=== PATIENT | female | born 1935 | race African-American/Black ===

== ENCOUNTER 2019-04-25 15:48 | Inpatient (IN) | payer MEDICARE, MEDICAID ==
[2019-04-25] VITALS (9 sets, daily range): BP systolic 172–248; BP diastolic 51–128
[~2019-04-25] VITALS: Ht 162.6 cm; Wt 54.5 kg
--- NOTE | 2019-04-25 15:50 | NUR ---
ED Nurse Note: pt brought in by [facility] from [facility], c/c hyperglycemia BS>500 and hypertension, BP>200 systolic. Noted pt tachycardic and febrile. REctal temp 102.6. ERMD aware of pt's condition. 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 will cont monitor.
[2019-04-25] MEDS ORDERED: Acetaminophen 650 MG SUPP RECTAL ONE (16:00)
--- NOTE | 2019-04-25 16:00 | NUR ---
ED Nurse Note: ERMD aware of pt's blood pressure, will cont monitor.
--- NOTE | 2019-04-25 16:02 | Emergency Room Report ---
History of Present Illness General Chief Complaint: Abnormal Labs Source: EMS Present Illness HPI Patient presents with increased blood glucose and altered level of consciousness. She is coming from a residential facility and brought by EMS. They checked a blood sugar that was elevated. In addition to that they state that her blood pressure was also elevated. They claim that she is DO NOT RESUSCITATE patient. The patient is unable to give history. According to the [place] physician she has history of dementia. She was treated for a urinary tract infection in January with Escherichia coli that was sensitive to sulfa, Zosyn, cephalosporins. Apparently the Escherichia coli was resistant to ciprofloxacin. He confirms also that she is DO NOT RESUSCITATE status. Allergies: Coded Allergies: AMLODIPINE (Verified Allergy, Unknown, 04/25/19) CODEINE (Verified Allergy, Unknown, 04/25/19) LOVASTATIN (Verified Allergy, Unknown, 04/25/19) MILK (Verified Allergy, Unknown, 04/25/19) PIOGLITAZONE (Verified Allergy, Unknown, 04/25/19) SIMVASTATIN (Verified Allergy, Unknown, 04/25/19) Uncoded Allergies: NSAIDS (Allergy, Unknown, 04/25/19) OPIATES (Allergy, Unknown, 04/25/19) SHELLFISH-DERIVED PRODUCTS (Allergy, Unknown, 04/25/19) Patient History Limited by: medical condition Past Medical History: see triage record, old chart reviewed Social History Narrative residential facility Now: No Reviewed Nursing Documentation: PMH: Agreed; PSxH: Agreed Review of Systems All Other Systems: limited Physical Exam Vital Signs Date Time Temp Pulse Resp B/P (MAP) Pulse Ox O2 Delivery O2 Flow Rate FiO2 04/25/19 15:45 99.1 103 18 202/86 (124) 99 Room Air Sp02 EP Interpretation: reviewed, normal General Appearance: alert, thin, Chronically Ill Head: normocephalic Eyes: bilateral eye normal inspection ENT: dry mucus membranes Neck: supple Respiratory: lungs clear, normal breath sounds Cardiovascular #1: regular rate, rhythm Cardiovascular #2: 2+ radial (R) Gastrointestinal: normal inspection, normal bowel sounds, non tender, no mass, non-distended Genitourinary: no CVA tenderness Musculoskeletal: back normal, normal range of motion Neurologic: responsive, sensory intact, motor weakness Psychiatric: depressed affect Skin: warm/dry, pallor, other - Sallow Procedures Critical Care Time Critical Care Time Total Critical Care Time: 30 min bedside evaluation and treatment excludes procedures (EKG). Reason for critical care: Sepsis, elevated troponin, renal failure, hyperglycemia, hypertensive urgency Possible complications: hypotension, hypertension, MT, shock, arrhythmias, metabolic acidosis, end organ damage, respiratory failure. Interventions: Sepsis resuscitation, antibiotics, insulin, repeat evaluations, discussion with doctors regarding level of care Course: Patient presented with fever, altered mental status. Sepsis resuscitation begun. Presumptive urinary source antibiotics begun. Repeat evaluations. Elevated troponin treated with aspirin. Discussed with [place] physician and determination of level of care. Insulin several doses administered. Sepsis reevaluation performed. Discussion with admitting physician. In the face of sepsis hypertension treated. Consultations: nursing staff, EMS, [place] physician, admitting physician Performed by: Dr. Petit Tolerated well condition = serious Medical Decision Making Diagnostic Impression: Primary Impression: Sepsis Qualified Codes: A41.9 - Sepsis, unspecified organism Additional Impressions: Elevated troponin Renal failure Qualified Codes: N17.9 - Acute kidney failure, unspecified Hypernatremia UTI (urinary tract infection) Qualified Codes: N39.0 - Urinary tract infection, site not specified Hypertensive urgency ER Course Patient presents with fever, hyperglycemia and hypertension and appears dehydrated. I differential includes sepsis, pneumonia, urinary tract infection , acute myocardial infarction amongst others. The patient will be evaluated with EKG, chest x-ray and labs including blood cultures and lactate. Based on the fact oxygen saturation is normal most likely she has a urinary source of her infection. She'll also be treated with Tylenol, fluid resuscitation with 30 mils per kilogram and antibiotics will be ordered. EKG ST. CXR atelectasis R. - large stomach bubble. WBC normal. Called with minimally elevated troponin - aspirin ordered. Acute renal failure. Hypernatremia. After bolus, more alert. HR better. Screaming occasionally. ABD - soft and not causing pain. Urine = source. Treat with morphine. Glucose 450 - insulin ordered IV. Agitated, Ativan given, min effect. Systolic hypertension. Repeat lactate and BNP ordered. Morphine repeat. BP min better. Still with systolic HTN. Hydralazine ordered (HR = 86). FeNa - 2.46% suggests ATN. Repeat BNP improved. Glucose high and insulin repeat. Repeat lactate improved. 19:25. Discussed with Dr. Alicia Qureshi - determined to stay as complex and too ill to transfer. Admit tele Dr. Pendleton. Discussed. Laboratory Tests Test 04/25/19 15:55 04/25/19 15:58 04/25/19 18:25 White Blood Count 9.9 K/UL (4.8-10.8) Red Blood Count 4.41 M/UL (4.20-5.40) Hemoglobin 12.7 G/DL (12.0-16.0) Hematocrit 38.7 % (37.0-47.0) Mean Corpuscular Volume 88 FL (80-99) Mean Corpuscular Hemoglobin 28.8 PG (27.0-31.0) Mean Corpuscular Hemoglobin Concent 32.9 G/DL (32.0-36.0) Red Cell Distribution Width 14.1 % (11.6-14.8) Platelet Count 155 K/UL (150-450) Mean Platelet Volume 7.4 FL (6.5-10.1) Neutrophils (%) (Auto) 71.8 % (45.0-75.0) Lymphocytes (%) (Auto) 20.3 % (20.0-45.0) Monocytes (%) (Auto) 5.4 % (1.0-10.0) Eosinophils (%) (Auto) 1.7 % (0.0-3.0) Basophils (%) (Auto) 0.8 % (0.0-2.0) Prothrombin Time 9.8 SEC (9.30-11.50) Prothrombin Time INR 0.9 (0.9-1.1) PTT 26 SEC (23-33) Sodium Level 156 MMOL/L (136-145) H 156 MMOL/L (136-145) H Potassium Level 5.0 MMOL/L (3.5-5.1) 5.5 MMOL/L (3.5-5.1) H Chloride Level 120 MMOL/L (98-107) H 125 MMOL/L (98-107) H Carbon Dioxide Level 26 MMOL/L (21-32) 20 MMOL/L (21-32) L Anion Gap 10 mmol/L (5-15) 11 mmol/L (5-15) Blood Urea Nitrogen 112 mg/dL (7-18) H 115 mg/dL (7-18) H Creatinine 4.3 MG/DL (0.55-1.30) H 3.5 MG/DL (0.55-1.30) H Estimate Glomerular Filtration Rate mL/min (>60) mL/min (>60) Glucose Level 589 MG/DL (74-106) *H 426 MG/DL (74-106) #H Lactic Acid Level 3.50 mmol/L (0.4-2.0) H 2.50 mmol/L (0.66-2.22) H Calcium Level 11.2 MG/DL (8.5-10.1) H 9.5 MG/DL (8.5-10.1) Phosphorus Level 2.8 MG/DL (2.5-4.9) Magnesium Level 2.7 MG/DL (1.8-2.4) H Total Bilirubin 0.2 MG/DL (0.2-1.0) Aspartate Amino Transferase (AST) 16 U/L (15-37) Alanine Aminotransferase (ALT) 24 U/L (12-78) Alkaline Phosphatase 112 U/L (46-116) Total Creatine Kinase 56 U/L (26-308) Troponin I 0.066 ng/mL (0.000-0.056) Pro-B-Type Natriuretic Peptide 4844 pg/mL (0-125) H Total Protein 7.6 G/DL (6.4-8.2) Albumin 3.2 G/DL (3.4-5.0) L Globulin 4.4 g/dL Albumin/Globulin Ratio 0.7 (1.0-2.7) L Lipase 168 U/L (73-393) Urine Color Pale yellow Urine Appearance Slightly cloudy Urine pH 5 (4.5-8.0) Urine Specific [place] 1.010 (1.005-1.035) Urine Protein 4+ (NEGATIVE) H Urine Glucose (UA) 4+ (NEGATIVE) H Urine Ketones Negative (NEGATIVE) Urine Blood 2+ (NEGATIVE) H Urine Nitrite Negative (NEGATIVE) Urine Bilirubin Negative (NEGATIVE) Urine Urobilinogen Normal MG/DL (0.0-1.0) Urine Leukocyte Esterase 3+ (NEGATIVE) H Urine RBC 5-10 /HPF (0 - 2) H Urine WBC 20-30 /HPF (0 - 2) H Urine Squamous Epithelial Cells Few /LPF (NONE/OCC) Urine Transitional Epithelial Cells /LPF (NONE) Urine Amorphous Sediment Few /LPF (NONE) H Urine Bacteria Many /HPF (NONE) H Urine Random Sodium 36 mmol/L (20-110) Urine Creatinine 40.4 MG/DL (30.0-125.0) EKG Diagnostic Results Rate: tachycardiac ST Segments: no acute changes Rhythm Strip Diag. Results EP Interpretation: yes Rhythm: no PVC's, no ectopy, other - ST Chest X-Ray Diagnostic Results Chest X-Ray Diagnostic Results : Chest X-Ray Ordered: Yes # of Views/Limited/Complete: 1 View Indication: Other EP Interpretation: Yes Interpretation: no consolidation, no effusion, no pneumothorax Impression: Other Electronically Signed by: Electronically signed by Rios Petit MD Last Vital Signs Date Time Temp Pulse Resp B/P (MAP) Pulse Ox O2 Delivery O2 Flow Rate FiO2 04/26/19 00:20 158/66 04/26/19 00:00 Room Air 04/26/19 00:00 97.8 76 18 98 Status: improved Disposition: ADMITTED INPATIENT Condition: Serious Rios Petit MD Apr 25, 2019 16:02
[2019-04-25] MEDS ORDERED: Cefepime HCl 1 GM in D5W 55 ML IVPB ONE (16:15)
--- NOTE | 2019-04-25 16:20 | NUR ---
ED Nurse Note: pt had BM x1, soft brown color, small amount.
--- NOTE | 2019-04-25 16:25 | NUR ---
ED Nurse Note: pt cleaned and changed into gown.
[2019-04-25 16:28] LABS: BASOPHILS % (AUTO) 0.8 % (0.0-2.0); EOSINOPHILS % (AUTO) 1.7 % (0.0-3.0); HEMATOCRIT 38.7 % (37.0-47.0); HEMOGLOBIN 12.7 G/DL (12.0-16.0); LYMPHOCYTES % (AUTO) 20.3 % (20.0-45.0); MEAN CORPUSCULAR VOLUME 88 FL (80-99); MONOCYTES % (AUTO) 5.4 % (1.0-10.0); NEUTROPHILS % (AUTO) 71.8 % (45.0-75.0); PLATELET COUNT 155 K/UL (150-450); RED BLOOD COUNT 4.41 M/UL (4.20-5.40); RED CELL DISTRIBUTION WIDTH 14.1 % (11.6-14.8); WHITE BLOOD COUNT 9.9 K/UL (4.8-10.8)
[2019-04-25 16:37] LABS: INR 0.9 (0.9-1.1)
--- NOTE | 2019-04-25 16:40 | NUR ---
ED Nurse Note: 16 fr witt cath inserted per ERMD order, pt tolerated well, 10cc NS inserted, secured with leg dressing, noted 20cc urine return with yellow cloudy with sediments. specimen collected and sent to lab.
[2019-04-25 16:46] LABS: APPEARANCE,URINE SLIGHTLY CLOUDY; BILIRUBIN, URINE NEGATIVE (NEGATIVE); COLOR,URINE PALE YELLOW; GLUCOSE, URINE (UA) 4+ (NEGATIVE); KETONES,URINE NEGATIVE (NEGATIVE); LEUKOCYTE ESTERASE ,URINE 3+ (NEGATIVE); NITRITE,URINE NEGATIVE (NEGATIVE); PH,URINE 5 (4.5-8.0); PROTEIN,URINE 4+ (NEGATIVE); UROBILINOGEN,URINE NORMAL MG/DL (0.0-1.0)
[2019-04-25 16:55] LABS: ALANINE AMINOTRANSFERASE 24 U/L (12-78); ALBUMIN 3.2 G/DL (3.4-5.0); ALBUMIN/GLOBULIN RATIO 0.7 (1.0-2.7); ALKALINE PHOSPHATASE 112 U/L (46-116); ANION GAP 10 mmol/L (5-15); ASPARTATE AMINO TRANSFERASE 16 U/L (15-37); BILIRUBIN,TOTAL 0.2 MG/DL (0.2-1.0); BLOOD UREA NITROGEN 112 mg/dL (7-18); CALCIUM 11.2 MG/DL (8.5-10.1); CARBON DIOXIDE 26 MMOL/L (21-32); CHLORIDE 120 MMOL/L (98-107); CREATINE KINASE 56 U/L (26-308); CREATININE 4.3 MG/DL (0.55-1.30); PHOSPHORUS 2.8 MG/DL (2.5-4.9); SODIUM 156 MMOL/L (136-145)
--- NOTE | 2019-04-25 17:04 | NUR ---
ED Nurse Note: ERMD aware of pt's critical lab, elevated glucose, lactic, troponin
--- NOTE | 2019-04-25 17:30 | NUR ---
ED Nurse Note: ERMD notified regarding pt's NL=[id number] at the bedside, also notified ERMD for possible pain.
[2019-04-25] MEDS ORDERED: Insulin Human Regular 100units/ml 3ml IV ONE ×2 (17:45→19:30)
[2019-04-25] MEDS ORDERED: Morphine Sulfate 2mg/ml Inj(IV/IM USE ONLY) IVP ONE (17:45)
[2019-04-25] MEDS ORDERED: LORazepam Inj 2mg/ml 1ml IV ONE (18:00)
--- NOTE | 2019-04-25 18:10 | NUR ---
ED Nurse Note: Pt continue to demonstrate sx agitation, moaning, frowning, possible pain, ERMD notified.
[2019-04-25] MEDS ORDERED: DULCOLAX10 MG RC (18:25)
[2019-04-25] MEDS ORDERED: CLONIDINE1 EAC1 TD (18:25)
[2019-04-25] MEDS ORDERED: CALCITONIN-SAL3.7 ML NS (18:25)
[2019-04-25] MEDS ORDERED: VITAMIN B-12100 MCG ORAL (18:25)
[2019-04-25] MEDS ORDERED: DOCUSATE SODIU100 M2 RECTAL (18:25)
[2019-04-25] MEDS ORDERED: ASPIRIN81 M3 PO (18:25)
[2019-04-25] MEDS ORDERED: SIMBRINZA 1%-0.28 ML OP (18:25)
[2019-04-25] MEDS ORDERED: FERROUS SULFAT325 M2 ORAL (18:25)
[2019-04-25] MEDS ORDERED: Morphine Sulfate 4mg/ml Inj (IV USE ONLY) IVP ONE (18:30)
[2019-04-25 18:59] LABS: ANION GAP 11 mmol/L (5-15); BLOOD UREA NITROGEN 115 mg/dL (7-18); CALCIUM 9.5 MG/DL (8.5-10.1); CARBON DIOXIDE 20 MMOL/L (21-32); CHLORIDE 125 MMOL/L (98-107); CREATININE 3.5 MG/DL (0.55-1.30); POTASSIUM 5.5 MMOL/L (3.5-5.1); SODIUM 156 MMOL/L (136-145)
[2019-04-25] MEDS ORDERED: ACETAMINOPHEN325 M1 ORAL (19:04)
[2019-04-25] MEDS ORDERED: NEPHROVITE1 TAB ORAL (19:04)
[2019-04-25] MEDS ORDERED: XOPENEX0.63 MG/3 HHN (19:04)
[2019-04-25] MEDS ORDERED: TYLENOL325 MG ORAL (19:04)
[2019-04-25] MEDS ORDERED: SORBITOL 70%30 ML ORAL (19:04)
[2019-04-25] MEDS ORDERED: ZOFRAN4 M1 ORAL (19:04)
[2019-04-25] MEDS ORDERED: HUMULIN R100 UNIT/1 SUBQ (19:04)
[2019-04-25] MEDS ORDERED: PROCRIT3000 UNIT/ SUBQ (19:04)
[2019-04-25] MEDS ORDERED: MINERAL OIL EN133 ML RC (19:04)
[2019-04-25] MEDS ORDERED: MULTIPLE VITAM1 EAC6 PO (19:04)
[2019-04-25] MEDS ORDERED: APRESOLINE100 MG ORAL (19:04)
[2019-04-25] MEDS ORDERED: LANTUS SOL100 UNIT/1 SUBQ (19:04)
[2019-04-25] MEDS ORDERED: ISOSORBIDE DINI20 M2 PO (19:04)
[2019-04-25] MEDS ORDERED: LATANOPROST 0.7.5 ML OP (19:04)
[2019-04-25] MEDS ORDERED: MOTRIN IB200 MG ORAL (19:04)
[2019-04-25] MEDS ORDERED: NIFEDIPINE ER90 M2 ORAL (19:04)
[2019-04-25] MEDS ORDERED: ACETAMINOPHEN650 M2 ORAL (19:04)
[2019-04-25] MEDS ORDERED: SENNA8.6 M2 PO (19:04)
[2019-04-25] MEDS ORDERED: NORMODYNE300 MG ORAL (19:04)
--- NOTE | 2019-04-25 21:57 | NUR ---
ED Nurse Note: REPORT GIVEN TO CYNDI HUANG
--- NOTE | 2019-04-25 21:58 | NUR ---
NURSE NOTES: Received report over the phone from CYNDI Cadena.Patient nonverbal,ST on quality assurance monitor,tolerated r/air well,IV intact,F/C draining toward gravity,B/P 175/94,charge nurse aware,waiting patient on a floor,room is ready.
[2019-04-25] MEDS ORDERED: HydrALAZINE 50mg tab ORAL PRN (22:15)
--- NOTE | 2019-04-25 22:15 | NUR ---
ED Nurse Note: PT TRANSFERRED TO SDU, ALL BELONGINGS SENT W/ PT W/ COMPLETED LIST, PICTURE UPLOADED, IV INTACT AND PATENT. CARE ENDORSED TO CYNDI HUANG.
--- NOTE | 2019-04-25 22:15 | NUR ---
NURSE NOTES: Patient brought on a floor by radha,no s/s of pain,no respiratory distress noted,belongings list signed,picture taken and uploaded,bed in a low safety position,call light within a reach,will continue to monitor.
[2019-04-26] VITALS: BP 158/66
[2019-04-26] MEDS ORDERED: NovoLOG Insulin Flexpen SUBQ SCH
[2019-04-26] MEDS: HydrALAZINE 50mg tab ORAL SCH ×4 (00:20→17:49)
--- NOTE | 2019-04-26 02:45 | Consultation ---
DATE OF CONSULTATION: 04/25/2019 CARDIOLOGY CONSULTATION REQUESTING PHYSICIAN: Nain Pendleton M.D. REASON FOR CONSULTATION: Uncontrolled hypertension and blood glucose in the setting of sepsis. HISTORY OF PRESENT ILLNESS: This 83-year-old female, who [facility]. She was brought into the hospital by paramedics because of altered mentation and labile elevated blood pressure and blood glucose levels. The patient is unable to give any historical data and records were reviewed for historical data. In the emergency room, the patient was noted to have a blood pressure of over 200 systolic on arrival with a heart rate over 100. She was also found to have signs of an acute infection with sepsis and an elevated troponin level prompting this consultation. PAST MEDICAL HISTORY: 1. Type 2 diabetes mellitus. 2. Hypertension. 3. Cerebrovascular disease. 4. Hyperlipidemia. 5. Chronic kidney disease. ALLERGIES: Multiple including amlodipine, codeine, statin drugs, pioglitazone, opiates, NSAIDs, shellfish, and milk. FAMILY HISTORY: Not known. SOCIAL HISTORY: Not obtainable. REVIEW OF SYSTEMS: Otherwise, not obtainable, but pertinent data from chart review is outlined above. PHYSICAL EXAMINATION: VITAL SIGNS: Temperature was 99.1 degrees, blood pressure 202/86, heart rate 103, respiratory rate 18, and room air oxygen saturation 99%. HEENT: Conjunctivae are pink. Oropharynx clear. Mucous membranes dry. NECK: Supple. Jugular venous pressure flat. LUNGS: Clear. CARDIAC: Regular rhythm and rate. Normal S1 and S2 with a 1/6 systolic murmur at the base. ABDOMEN: Soft and nontender with no guarding or rebound. EXTREMITIES: No clubbing, no cyanosis, and no edema. NEUROLOGIC: The patient is withdrawn and lethargic with moderate cognitive impairment. LABORATORY AND DIAGNOSTIC DATA: EKG reveals sinus tachycardia. No acute ST change. Chest x-ray reveals right atelectasis. White count 9.9 and hemoglobin 12.7. Sodium 156, potassium 5, bicarbonate 26, chloride 120, BUN 112, creatinine 4.3, and glucose 589. Lactic acid 3.5. Troponin 0.66. Pro-natriuretic peptide 4800. Albumin 3.2. Urinalysis with 20 to 30 white cells and many bacteria. IMPRESSION: 1. Hypertensive urgency. 2. Type 2 diabetes mellitus with uncontrolled blood glucose. 3. Severe hypernatremia and dehydration. 4. Hyperchloremia. 5. Acute renal failure with underlying chronic kidney disease. 6. Urinary tract infection. PLAN: 1. Hypotonic IV fluid hydration. 2. Panculture. 3. Empiric antibiotics. 4. Clarify code status. 5. Serial troponin levels. 6. Anti-platelet therapy. 7. Beta-blockade. 8. Titration of antihypertensive drugs. 9. Insulin coverage by sliding scale. 10. DVT and stress ulcer prophylaxis. 11. Further recommendations will follow based on clinical course. Valente Chong JOB#: [id number] CC:
[2019-04-26 04:00] VITALS: BP 147/70
[2019-04-26] MEDS ORDERED: Zosyn 2.25gm inj ONE (04:29)
[2019-04-26 04:45] LABS: BASOPHILS % (AUTO) 0.8 % (0.0-2.0); EOSINOPHILS % (AUTO) 2.1 % (0.0-3.0); HEMOGLOBIN 10.8 G/DL (12.0-16.0); LYMPHOCYTES % (AUTO) 20.6 % (20.0-45.0); MEAN CORPUSCULAR VOLUME 92 FL (80-99); MONOCYTES % (AUTO) 7.7 % (1.0-10.0); NEUTROPHILS % (AUTO) 68.8 % (45.0-75.0); PLATELET COUNT 141 K/UL (150-450); RED CELL DISTRIBUTION WIDTH 14.8 % (11.6-14.8); WHITE BLOOD COUNT 10.2 K/UL (4.8-10.8)
[2019-04-26 05:30] LABS: ALANINE AMINOTRANSFERASE 40 U/L (12-78); ALBUMIN 2.6 G/DL (3.4-5.0); ALBUMIN/GLOBULIN RATIO 0.7 (1.0-2.7); ALKALINE PHOSPHATASE 62 U/L (46-116); ANION GAP 9 mmol/L (5-15); ASPARTATE AMINO TRANSFERASE 58 U/L (15-37); BILIRUBIN,TOTAL 0.3 MG/DL (0.2-1.0); BLOOD UREA NITROGEN 105 mg/dL (7-18); CALCIUM 9.3 MG/DL (8.5-10.1); CARBON DIOXIDE 22 MMOL/L (21-32); CHLORIDE 125 MMOL/L (98-107); CREATINE KINASE 94 U/L (26-308); CREATININE 3.2 MG/DL (0.55-1.30); POTASSIUM 4.8 MMOL/L (3.5-5.1); SODIUM 156 MMOL/L (136-145)
[2019-04-26] MEDS: Piperacillin/Tazobactam 2.25 GM in NS 110 ML IV SCH ×3 (05:36→22:05)
[2019-04-26] MEDS: NovoLOG Insulin Flexpen SUBQ SCH ×4 (05:38→21:00)
--- NOTE | 2019-04-26 07:37 | NUR ---
HAND-OFF: Report given to CYNDI Epstein.Patient stable.
[2019-04-26 08:00] VITALS: BP 167/68
--- NOTE | 2019-04-26 08:00 | NUR ---
NURSE NOTES: Opens eyes, nonberbal. No distress noted. SR. ROom air. R wrist 20, NS at 125 cc/hr. Sawyer intact. Hypoactive bowel sounds present on all 4 quadrants. Lung sounds diminished bilaterally. Bed on lowest position, bed alarm on for safety, call light within reach. Will continue plan of care.
--- NOTE | 2019-04-26 08:10 | History & Physical ---
History and Physical History & Physicial 83-year-old female, resides at a SNF. She was brought into the hospital by paramedics because of abnormal vitals and hyperglycemia she was admitted for elevated blood pressure and possible sepsis PAST MEDICAL HISTORY: 1. Type 2 diabetes mellitus. 2. Hypertension. 3. Cerebrovascular disease. 4. Hyperlipidemia. 5. Chronic kidney disease. ALLERGIES and MEDS: reviewed and reconciled FAMILY HISTORY: unknown SOCIAL HISTORY: SNF patient REVIEW OF SYSTEMS: unobtainable PHYSICAL EXAMINATION: WDWN NAD clear breath sounds bilaterally without rhonchi or wheeze [id number] without MRG NABS nontender no HSM no CCE nonfocal withdrawn Labs Test 04/25/19 15:55 04/25/19 15:58 04/25/19 18:25 04/26/19 03:15 White Blood Count 9.9 K/UL (4.8-10.8) 10.2 K/UL (4.8-10.8) Red Blood Count 4.41 M/UL (4.20-5.40) 3.70 M/UL (4.20-5.40) Hemoglobin 12.7 G/DL (12.0-16.0) 10.8 G/DL (12.0-16.0) Hematocrit 38.7 % (37.0-47.0) 34.0 % (37.0-47.0) Mean Corpuscular Volume 88 FL (80-99) 92 FL (80-99) Mean Corpuscular Hemoglobin 28.8 PG (27.0-31.0) 29.3 PG (27.0-31.0) Mean Corpuscular Hemoglobin Concent 32.9 G/DL (32.0-36.0) 31.9 G/DL (32.0-36.0) Red Cell Distribution Width 14.1 % (11.6-14.8) 14.8 % (11.6-14.8) Platelet Count 155 K/UL (150-450) 141 K/UL (150-450) Mean Platelet Volume 7.4 FL (6.5-10.1) 7.4 FL (6.5-10.1) Neutrophils (%) (Auto) 71.8 % (45.0-75.0) 68.8 % (45.0-75.0) Lymphocytes (%) (Auto) 20.3 % (20.0-45.0) 20.6 % (20.0-45.0) Monocytes (%) (Auto) 5.4 % (1.0-10.0) 7.7 % (1.0-10.0) Eosinophils (%) (Auto) 1.7 % (0.0-3.0) 2.1 % (0.0-3.0) Basophils (%) (Auto) 0.8 % (0.0-2.0) 0.8 % (0.0-2.0) Prothrombin Time 9.8 SEC (9.30-11.50) Prothromb Time International Ratio 0.9 (0.9-1.1) Activated Partial Thromboplast Time 26 SEC (23-33) Sodium Level 156 MMOL/L (136-145) 156 MMOL/L (136-145) 156 MMOL/L (136-145) Potassium Level 5.0 MMOL/L (3.5-5.1) 5.5 MMOL/L (3.5-5.1) 4.8 MMOL/L (3.5-5.1) Chloride Level 120 MMOL/L (98-107) 125 MMOL/L (98-107) 125 MMOL/L (98-107) Carbon Dioxide Level 26 MMOL/L (21-32) 20 MMOL/L (21-32) 22 MMOL/L (21-32) Anion Gap 10 mmol/L (5-15) 11 mmol/L (5-15) 9 mmol/L (5-15) Blood Urea Nitrogen 112 mg/dL (7-18) 115 mg/dL (7-18) 105 mg/dL (7-18) Creatinine 4.3 MG/DL (0.55-1.30) 3.5 MG/DL (0.55-1.30) 3.2 MG/DL (0.55-1.30) Estimat Glomerular Filtration Rate mL/min (>60) mL/min (>60) mL/min (>60) Glucose Level 589 MG/DL (74-106) 426 MG/DL (74-106) 243 MG/DL (74-106) Lactic Acid Level 3.50 mmol/L (0.4-2.0) 2.50 mmol/L (0.66-2.22) 0.60 mmol/L (0.4-2.0) Calcium Level 11.2 MG/DL (8.5-10.1) 9.5 MG/DL (8.5-10.1) 9.3 MG/DL (8.5-10.1) Phosphorus Level 2.8 MG/DL (2.5-4.9) Magnesium Level 2.7 MG/DL (1.8-2.4) Total Bilirubin 0.2 MG/DL (0.2-1.0) 0.3 MG/DL (0.2-1.0) Aspartate Amino Transf (AST/SGOT) 16 U/L (15-37) 58 U/L (15-37) Alanine Aminotransferase (ALT/SGPT) 24 U/L (12-78) 40 U/L (12-78) Alkaline Phosphatase 112 U/L (46-116) 62 U/L (46-116) Total Creatine Kinase 56 U/L (26-308) 94 U/L (26-308) Troponin I 0.066 ng/mL (0.000-0.056) 0.061 ng/mL (0.000-0.056) Pro-B-Type Natriuretic Peptide 4844 pg/mL (0-125) Total Protein 7.6 G/DL (6.4-8.2) 6.2 G/DL (6.4-8.2) Albumin 3.2 G/DL (3.4-5.0) 2.6 G/DL (3.4-5.0) Globulin 4.4 g/dL 3.6 g/dL Albumin/Globulin Ratio 0.7 (1.0-2.7) 0.7 (1.0-2.7) Lipase 168 U/L (73-393) Urine Color Pale yellow Urine Appearance Slightly cloudy Urine pH 5 (4.5-8.0) Urine Specific [place] 1.010 (1.005-1.035) Urine Protein 4+ (NEGATIVE) Urine Glucose (UA) 4+ (NEGATIVE) Urine Ketones Negative (NEGATIVE) Urine Blood 2+ (NEGATIVE) Urine Nitrite Negative (NEGATIVE) Urine Bilirubin Negative (NEGATIVE) Urine Urobilinogen Normal MG/DL (0.0-1.0) Urine Leukocyte Esterase 3+ (NEGATIVE) Urine RBC 5-10 /HPF (0 - 2) Urine WBC 20-30 /HPF (0 - 2) Urine Squamous Epithelial Cells Few /LPF (NONE/OCC) Urine Transitional Epithelial Cells /LPF (NONE) Urine Amorphous Sediment Few /LPF (NONE) Urine Bacteria Many /HPF (NONE) Urine Random Sodium 36 mmol/L (20-110) Urine Creatinine 40.4 MG/DL (30.0-125.0) Thyroid Stimulating Hormone (TSH) 1.319 uiU/mL (0.358-3.740) IMPRESSION hypertensive emergency acute on chronic renal failure acute on chronic encephalopathy hyperglycemia moderate protein calorie malnutrition hypernatremia PLAN care noted cards appreciated hypotonic fluids IV antibiotics monitor LOC transfer to [place] impression, plan, and exam edited and reviewed in detail care discussed with Nain Rosa MD Apr 26, 2019 08:10
--- NOTE | 2019-04-26 08:50 | Consultation ---
History of Present Illness General Date patient seen: Apr 26, 2019 Chief Complaint: Abnormal Labs Present Illness HPI 83 y/o AA female from snf transferred for hyperglycemia. Pt. noted to have arf with elevated creat above baseline and hypernatremia. Pt apparently has had poor po intake vish of fluids. Witt placed with good clear uop. Unable to get further history sec to lethargic state. Med recoerds from [facility] have been carefully reviewed. Allergies: Coded Allergies: AMLODIPINE (Verified Allergy, Unknown, 04/25/19) CODEINE (Verified Allergy, Unknown, 04/25/19) LOVASTATIN (Verified Allergy, Unknown, 04/25/19) MILK (Verified Allergy, Unknown, 04/25/19) PIOGLITAZONE (Verified Allergy, Unknown, 04/25/19) SIMVASTATIN (Verified Allergy, Unknown, 04/25/19) Uncoded Allergies: NSAIDS (Allergy, Unknown, 04/25/19) OPIATES (Allergy, Unknown, 04/25/19) SHELLFISH-DERIVED PRODUCTS (Allergy, Unknown, 04/25/19) Medication History Scheduled Acetaminophen (Acetaminophen 8 Hour), 650 MG ORAL Q6H, (Reported) Aspirin (Aspirin), 81 MG PO DAILY, (Reported) Brinzolamide/Brimonid Tart (Simbrinza 1%-0.2% Eye Drops), 1 DROP OP THREE TIMES A DAY, (Reported) Calcitonin,[place],Synthetic (Calcitonin-[place]), 200 UNITS NS DAILY, (Reported) Cyanocobalamin (Vitamin B-12), 100 MCG ORAL DAILY, (Reported) Docusate Sodium (Docusate Sodium), 250 MG RECTAL TWICE A DAY, (Reported) Ferrous Sulfate (Ferrous Sulfate), 650 MG ORAL DAILY, (Reported) Hydralazine HCl (Hydralazine HCl), 100 MG ORAL EVERY 8 HOURS, (Reported) Ibuprofen* (Motrin Ib*), 600 MG ORAL Q8H, (Reported) Insulin Glargine (Lantus), 12 UNIT SUBQ DAILY, (Reported) Labetalol HCl (Labetalol HCl), 300 MG ORAL EVERY 12 HOURS, (Reported) Levalbuterol Hcl (Xopenex*), 0.63 MG HHN Q4H, (Reported) Nifedipine Er* (Nifedipine Er*), 90 MG ORAL BID, (Reported) Sennosides (Senna), 17.2 MG PO QHS, (Reported) Sorbitol (Sorbitol), 30 ML ORAL Q6HR, (Reported) Vitamin B Cmplx/Vit C/Folic AC (Nephro-Chantel Tablet), 1 TAB ORAL DAILY, (Reported ) Scheduled PRN Acetaminophen (Tylenol), 650 MG ORAL Q6H PRN for Prn Pain/Headache/Temp > 101, ( Reported) Acetaminophen* (Acetaminophen 325MG Tablet*), 650 MG ORAL Q4H PRN for For Pain, (Reported) Ondansetron (Zofran), 4 MG ORAL Q6H PRN for Nausea & Vomiting, (Reported) Miscellaneous Medications Bisacodyl (Dulcolax), 10 MG RC, (Reported) Clonidine (Clonidine), 1 EACH TD, (Reported) Epoetin Leonid (Procrit), 8,000 UNIT SUBQ, (Reported) Insulin Regular, Human (Humulin R), 0 SUBQ, (Reported) Isosorbide Dinitrate (Isosorbide Dinitrate), 40 MG PO, (Reported) Latanoprost/Pf (Latanoprost 0.005% Eye Drop), 1 DROP OP, (Reported) Mineral Oil (Mineral Oil Enema), 133 ML RC, (Reported) Multivitamin (Multiple Vitamins), 1 EACH PO, (Reported) Patient History Limited by: medical condition Healthcare decision maker Resuscitation status Do Not Resuscitate Advanced Directive on File Past Medical/Surgical History Past Medical/Surgical History: (1) Diabetes 1.5, managed as type 2 (2) CKD (chronic kidney disease) stage 3, GFR 30-59 ml/min (3) Renal failure (4) UTI (urinary tract infection) Review of Systems Constitutional: Reports: malaise, weakness Eye: Denies: no symptoms, see HPI, eye pain, blurred vision, tearing, double vision, nose pain, nose congestion, acuity changes, discharge, other ENT: Denies: no symptoms, see HPI, ear pain, ear discharge, nose pain, nose congestion, throat pain, throat swelling, mouth pain, hearing loss, nasal discharge, other Respiratory: Denies: no symptoms, see HPI, cough, orthopnea, shortness of breath, stridor, wheezing, [place], sputum, other Cardiovascular: Denies: no symptoms, see HPI, chest pain, edema, palpitations, syncope, PND, other Gastrointestinal: Denies: no symptoms, see HPI, abdominal pain, constipation, diarrhea, nausea, vomiting, melena, hematemesis, other Musculoskeletal: Denies: no symptoms, see HPI, back pain, gout, joint pain, joint swelling, muscle pain, muscle stiffness, other Physical Exam General Appearance: lethargic, confused HEENT: normocephalic, PERRL Neck: supple Respiratory/Chest: normal breath sounds Cardiovascular/Chest: normal rate Abdomen: soft 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: 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 II-XII grossly normal Last 24 Hour Vital Signs Date Time Temp Pulse Resp B/P (MAP) Pulse Ox O2 Delivery O2 Flow Rate FiO2 04/26/19 08:00 Room Air 04/26/19 05:37 147/70 04/26/19 04:00 97.5 84 20 147/70 (95) 97 04/26/19 04:00 Room Air 04/26/19 03:46 83 04/26/19 00:20 158/66 04/26/19 00:00 Room Air 04/26/19 00:00 97.8 76 18 158/66 (96) 98 04/26/19 00:00 73 04/25/19 23:11 76 173/78 04/25/19 23:00 Room Air 04/25/19 22:15 99.1 82 19 189/58 100 Room Air 04/25/19 21:00 99.8 81 18 186/68 100 Room Air 04/25/19 20:00 99.8 85 18 185/51 100 Room Air 04/25/19 19:06 198/72 04/25/19 19:02 102.6 04/25/19 19:00 98.9 79 18 188/65 99 Room Air 04/25/19 18:30 100.4 79 18 198/100 99 Room Air 04/25/19 18:16 102.6 04/25/19 18:00 99.0 89 18 198/76 99 Room Air 04/25/19 17:30 99.2 89 18 248/96 99 Room Air 04/25/19 17:00 99.1 98 18 172/128 99 Room Air 04/25/19 16:55 109 18 Room Air 04/25/19 16:41 102.6 04/25/19 16:20 102.2 106 18 208/100 99 Room Air 04/25/19 15:50 102.6 109 18 206/68 99 Room Air 04/25/19 15:45 99.1 103 18 202/86 (124) 99 Room Air Intake and Output 04/25/19 04/26/19 19:00 07:00 Intake Total 1000 ml 1010 ml Output Total 1100 ml Balance 1000 ml -90 ml Intake IV Total 1000 ml 1010 ml Output Urine Total 1100 ml # Bowel Movements 2 Laboratory Tests Test 04/25/19 15:55 04/25/19 15:58 04/25/19 18:25 04/26/19 03:15 White Blood Count 9.9 K/UL (4.8-10.8) 10.2 K/UL (4.8-10.8) Red Blood Count 4.41 M/UL (4.20-5.40) 3.70 M/UL (4.20-5.40) L Hemoglobin 12.7 G/DL (12.0-16.0) 10.8 G/DL (12.0-16.0) L Hematocrit 38.7 % (37.0-47.0) 34.0 % (37.0-47.0) L Mean Corpuscular Volume 88 FL (80-99) 92 FL (80-99) Mean Corpuscular Hemoglobin 28.8 PG (27.0-31.0) 29.3 PG (27.0-31.0) Mean Corpuscular Hemoglobin Concent 32.9 G/DL (32.0-36.0) 31.9 G/DL (32.0-36.0) L Red Cell Distribution Width 14.1 % (11.6-14.8) 14.8 % (11.6-14.8) Platelet Count 155 K/UL (150-450) 141 K/UL (150-450) L Mean Platelet Volume 7.4 FL (6.5-10.1) 7.4 FL (6.5-10.1) Neutrophils (%) (Auto) 71.8 % (45.0-75.0) 68.8 % (45.0-75.0) Lymphocytes (%) (Auto) 20.3 % (20.0-45.0) 20.6 % (20.0-45.0) Monocytes (%) (Auto) 5.4 % (1.0-10.0) 7.7 % (1.0-10.0) Eosinophils (%) (Auto) 1.7 % (0.0-3.0) 2.1 % (0.0-3.0) Basophils (%) (Auto) 0.8 % (0.0-2.0) 0.8 % (0.0-2.0) Prothrombin Time 9.8 SEC (9.30-11.50) Prothromb Time International Ratio 0.9 (0.9-1.1) Activated Partial Thromboplast Time 26 SEC (23-33) Sodium Level 156 MMOL/L (136-145) H 156 MMOL/L (136-145) H 156 MMOL/L (136-145) H Potassium Level 5.0 MMOL/L (3.5-5.1) 5.5 MMOL/L (3.5-5.1) H 4.8 MMOL/L (3.5-5.1) Chloride Level 120 MMOL/L (98-107) H 125 MMOL/L (98-107) H 125 MMOL/L (98-107) H Carbon Dioxide Level 26 MMOL/L (21-32) 20 MMOL/L (21-32) L 22 MMOL/L (21-32) Anion Gap 10 mmol/L (5-15) 11 mmol/L (5-15) 9 mmol/L (5-15) Blood Urea Nitrogen 112 mg/dL (7-18) H 115 mg/dL (7-18) H 105 mg/dL (7-18) H Creatinine 4.3 MG/DL (0.55-1.30) H 3.5 MG/DL (0.55-1.30) H 3.2 MG/DL (0.55-1.30) H Estimat Glomerular Filtration Rate mL/min (>60) mL/min (>60) mL/min (>60) Glucose Level 589 MG/DL (74-106) *H 426 MG/DL (74-106) #H 243 MG/DL (74-106) #H Lactic Acid Level 3.50 mmol/L (0.4-2.0) H 2.50 mmol/L (0.66-2.22) H 0.60 mmol/L (0.4-2.0) Calcium Level 11.2 MG/DL (8.5-10.1) H 9.5 MG/DL (8.5-10.1) 9.3 MG/DL (8.5-10.1) Phosphorus Level 2.8 MG/DL (2.5-4.9) Magnesium Level 2.7 MG/DL (1.8-2.4) H Total Bilirubin 0.2 MG/DL (0.2-1.0) 0.3 MG/DL (0.2-1.0) Aspartate Amino Transf (AST/SGOT) 16 U/L (15-37) 58 U/L (15-37) H Alanine Aminotransferase (ALT/SGPT) 24 U/L (12-78) 40 U/L (12-78) Alkaline Phosphatase 112 U/L (46-116) 62 U/L (46-116) Total Creatine Kinase 56 U/L (26-308) 94 U/L (26-308) Troponin I 0.066 ng/mL (0.000-0.056) 0.061 ng/mL (0.000-0.056) Pro-B-Type Natriuretic Peptide 4844 pg/mL (0-125) H Total Protein 7.6 G/DL (6.4-8.2) 6.2 G/DL (6.4-8.2) L Albumin 3.2 G/DL (3.4-5.0) L 2.6 G/DL (3.4-5.0) L Globulin 4.4 g/dL 3.6 g/dL Albumin/Globulin Ratio 0.7 (1.0-2.7) L 0.7 (1.0-2.7) L Lipase 168 U/L (73-393) Urine Color Pale yellow Urine Appearance Slightly cloudy Urine pH 5 (4.5-8.0) Urine Specific Clancy 1.010 (1.005-1.035) Urine Protein 4+ (NEGATIVE) H Urine Glucose (UA) 4+ (NEGATIVE) H Urine Ketones Negative (NEGATIVE) Urine Blood 2+ (NEGATIVE) H Urine Nitrite Negative (NEGATIVE) Urine Bilirubin Negative (NEGATIVE) Urine Urobilinogen Normal MG/DL (0.0-1.0) Urine Leukocyte Esterase 3+ (NEGATIVE) H Urine RBC 5-10 /HPF (0 - 2) H Urine WBC 20-30 /HPF (0 - 2) H Urine Squamous Epithelial Cells Few /LPF (NONE/OCC) Urine Transitional Epithelial Cells /LPF (NONE) Urine Amorphous Sediment Few /LPF (NONE) H Urine Bacteria Many /HPF (NONE) H Urine Random Sodium 36 mmol/L (20-110) Urine Creatinine 40.4 MG/DL (30.0-125.0) Thyroid Stimulating Hormone (TSH) 1.319 uiU/mL (0.358-3.740) Microbiology Date/Time Source Procedure Growth Status 04/25/19 15:58 Urine,Clean Catch Urine Culture - Preliminary Gram Negative Bacillus 1 Resulted 04/25/19 15:55 Rectum Received Height (Feet): 5 Height (Inches): 4.00 Weight (Pounds): 118 Medications Current Medications Medications (Trade) Dose Ordered Sig/Ford Route PRN Reason Start Time Stop Time Status Last Admin Dose Admin Acetaminophen (Tylenol) 650 mg Q4H PRN ORAL Mild Pain/Temp > 100.5 04/25/19 22:15 05/25/19 22:14 Amlodipine Besylate (Norvasc) 10 mg DAILY ORAL 04/26/19 09:00 05/26/19 08:59 Dextrose (Dextrose 50%) 25 ml Q30M PRN IV Hypoglycemia 04/25/19 22:15 05/25/19 22:14 Dextrose (Dextrose 50%) 50 ml Q30M PRN IV Hypoglycemia 04/25/19 22:15 05/25/19 22:14 Heparin Sodium (Porcine) (Heparin 5000 units/ml) 5,000 units EVERY 12 HOURS SUBQ 04/26/19 09:00 05/26/19 08:59 Hydralazine HCl (Apresoline) 50 mg Q6HR ORAL 04/26/19 00:00 05/26/19 00:00 04/26/19 05:37 Hydralazine HCl (Apresoline) 50 mg Q6HR PRN ORAL SBP above 150 04/25/19 22:15 05/25/19 22:14 Insulin Aspart (NovoLOG) BEFORE MEALS AND HS SUBQ 04/26/19 06:30 05/26/19 06:29 04/26/19 05:38 Labetalol HCl (Normodyne) 300 mg Q12HR ORAL 04/26/19 09:00 05/26/19 08:59 Piperacillin Sod/ Tazobactam Sod 2.25 gm/Sodium Chloride 110 ml @ 220 mls/hr EVERY 8 HOURS IV 04/26/19 06:00 05/03/19 05:59 04/26/19 05:36 Sodium Chloride 1,000 ml @ 125 mls/hr Q8H IV 04/25/19 22:15 05/25/19 22:14 04/26/19 05:37 Assessment/Plan Problem List: (1) ARF (acute renal failure) Assessment & Plan: - likely vasomotor sec to volume depletion free h2o deficit. -cont hypotonic saline -control bp and Blood sugars -adjust meds to lower crcl. -check renal US to eval kidney size, r/o obstruction -check urine lytes to Calc Fena ICD Codes: N17.9 - Acute kidney failure, unspecified SNOMED: 74218950 (2) CKD (chronic kidney disease) stage 3, GFR 30-59 ml/min Assessment & Plan: -will try to get baseline. -check UA for casts and eval proteinuria -cont bs control to retard progression -cont bp control -watch volume closely, keep witt -avoid nsaids, contrast ICD Codes: N18.3 - Chronic kidney disease, stage 3 (moderate) SNOMED: 850595405 (3) Diabetes 1.5, managed as type 2 Assessment & Plan: -watch bs, check hga1c, cont. SSi ICD Codes: E13.9 - Other specified diabetes mellitus without complications SNOMED: 562208866 (4) Hypertensive urgency ICD Codes: I16.0 - Hypertensive urgency SNOMED: 057328499 (5) UTI (urinary tract infection) ICD Codes: N39.0 - Urinary tract infection, site not specified SNOMED: 58047055 Qualifiers: Qualified Codes: N39.0 - Urinary tract infection, site not specified (6) Sepsis Assessment & Plan: -cont iv abx, await final cultures ICD Codes: A41.9 - Sepsis, unspecified organism SNOMED: 95550926 Qualifiers: Qualified Codes: A41.9 - Sepsis, unspecified organism (7) Hypernatremia Assessment & Plan: -cont ivf hypotonic, has 5-6 liter of free water deficit ICD Codes: E87.0 - Hyperosmolality and hypernatremia SNOMED: 031166275 Aly De Los Santos M.D. Apr 26, 2019 08:50
--- NOTE | 2019-04-26 10:02 | NUR ---
LAN SUPPORT SPECIALISTWATERWAY TRAFFIC CHECKER 35 Y/O FEMALE [place] FROM HOME TO [facility] ER CC:ABNORMAL LABS SI:SEPSIS . ELEVATED TROPONIN VS: BP 248/96, P 106, T 99.1, RR 18, SpO2 99 RBC 3.70, H&H 10.8/34.0, Na 156, K 5.5, BUN 115, CR 3.5 IS:TYLENOL 650mg NS x1L IV LEVOFLOXACIN 150ml IVPB CEFEPIME HCI 55ml IVPB NOVOLIN R 10units IV MORPHINE 2mg IVP APRESOLINE 10mg IV ADMITTED TO [facility] DCP: RETURN HOME Addendum: 04/26/19 at 1030 by Yanira Cabrera LVN 83 Y/O FEMALE FROM [facility] TO [facility] LABS: GLUCOSE [id number]
[2019-04-26] MEDS: Labetalol 200mg tab ORAL SCH ×2 (10:09→21:02)
[2019-04-26] MEDS: Heparin 5000 units/ml inj SUBQ SCH ×2 (10:11→21:04)
--- NOTE | 2019-04-26 10:23 | Diagnostic Imaging Report ---
Indication: Dyspnea Comparison: None A single view chest radiograph was obtained. Findings: Lung volumes are low. Right hemidiaphragm is elevated. There is a plate like atelectasis in the right perihilar region. Heart is normal size. Aorta is calcified. Stomach is distended with air IMPRESSION: Mild right perihilar atelectasis. Expiratory lung volumes
[2019-04-26 12:00] VITALS: BP 165/81
--- NOTE | 2019-04-26 13:33 | Diagnostic Imaging Report ---
Indication:Elevated Bun and Creatinine. Technique: Grayscale and duplex Doppler imaging of the kidneys performed. Comparison: None Findings: There are multiple cysts within the right kidney. There is a simple cyst in the left kidney. The cortical echogenicity of both kidneys are increased. The right kidney measures about 9 cm. Left kidney 7 cm in length. IVC and urinary bladder are unremarkable. IMPRESSION: Medical renal disease
--- NOTE | 2019-04-26 14:00 | NUR ---
NURSE NOTES: VSS. No distress noted. Turned and repositioned. WIll continue plan of care.
--- NOTE | 2019-04-26 14:59 | NUR ---
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 * Altered nutrition related lab values R/T fluid deficit, ARF, DM, clinical condition as evidenced by elev Na (156), elev BUN (105), elev creat (3.2), elev BG (589* ->243), elev BPs (208/100, 202/86). CURRENT DIET:NPO PO DIET RECOMMENDATIONS: LOW NA, CCHO LOW/ texture per TECHNICAL SUPPORT SPECIALIST ADDITIONAL RECOMMENDATIONS: * Calibrated bedscale wt for accurate CBW * TECHNICAL SUPPORT SPECIALIST eval for appropriate texture * Consider long acting insulin for improved BGs * Monitor lytes and renal fxn * CONSIDER IGE TEST FOR MILK ALLERGY: MILK listed on the allergy list. However, pt on 8oz milk + ice cream TID @ meals, HPN @ SNF * Wound healing: add MVI x 1, Vit C 500mg QD, Mark 1pkt BID
--- NOTE | 2019-04-26 15:07 | NUR ---
*-* INSURANCE *-* ALL CLINICALS AND REVIEW HAVE BEEN FAXED TO: T:[phone] F:[phone] Addendum: 04/26/19 at 1511 by KOSTAS BAJWA CM [place]
[2019-04-26 16:00] VITALS: BP 132/61
--- NOTE | 2019-04-26 16:14 | NUR ---
FUEL SYSTEM MAINTENANCE WORKER NOTES SPOKE WITH [facility] TO DISCHARGE TO [facility] WILL CALL BACK WITH TRANSFER INFORMATION ONCE BED IS ASSIGNED.
[2019-04-26] MEDS ORDERED: DOCUSATE SODIU250 MG ORAL (18:51)
[2019-04-26] MEDS ORDERED: VITAMIN B-12500 MCG ORAL (18:51)
[2019-04-26] MEDS ORDERED: LATANOPROST2.5 ML BOTH EYES (19:06)
[2019-04-26] MEDS ORDERED: MELATONIN1 MG PO (19:06)
[2019-04-26] MEDS ORDERED: MINERAL OIL EN133 ML RC (19:06)
[2019-04-26] MEDS ORDERED: MIRTAZAPINE15 M3 ORAL (19:12)
--- NOTE | 2019-04-26 19:14 | NUR ---
HAND-OFF: Report given to Paulo RN using SBAR. VSS. No distress noted.
--- NOTE | 2019-04-26 19:18 | Cardiology Report ---
APPROVED REPORT EXAM: Two-dimensional and M-mode echocardiogram with Doppler and color Doppler. INDICATION Hypertension/HCVD M-Mode DIMENSIONS IVSd1.6 (0.7-1.1cm)Left Atrium (MM)4.0 (1.6-4.0cm) LVDd4.7 (3.5-5.6cm)Aortic Root2.6 (2.0-3.7cm) PWd1.8 (0.7-1.1cm)Aortic Cusp Exc.1.6 (1.5-2.0cm) IVSs2.1 cm LVDs2.2 (2.5-4.0cm) PWs2.1 cm Normal left ventricular chamber size, systolic function and wall motion. Left ventricular ejection fraction estimated to be 65 %. Severe left ventricular hypertrophy by 2-D. There is possible dynamic obstruction in the mid ventricular cavity. Small posterior pericardial effusion. All other cardiac chamber sizes are within normal limits. Focal aortic valve sclerosis with adequate cusp excursion. Thickened mitral valve leaflets with normal excursion. Mitral annulus and aortic root calcification. Pulmonic valve not well visualized. Normal tricuspid valve structure. IVC at normal size with physiologic collapse. A color flow and spectral Doppler study was performed and revealed: Mild mid left ventricular dynamic obstruction with pressure gradient at -7 mmHg. No valsalva maneuver was done. Trace mitral regurgitation. Mitral diastolic velocities suggest reduced left ventricular relaxation c/w mild LV diastolic dysfunction (Grade I). Trace tricuspid regurgitation. Tricuspid systolic velocities suggests peak right ventricular systolic pressure of 19 mmHg.
--- NOTE | 2019-04-26 19:23 | Cardiology Report ---
APPROVED REPORT EKG Measurement Heart [id number] Sinus tachycardia Cannot rule out Anterior infarct, age undetermined Abnormal ECG
--- NOTE | 2019-04-26 19:30 | NUR ---
NURSE NOTES: Received patient from CYNDI Epstein. patient is awake and confused, but responsive to verbal commands. patient denies pain at this time. patient is on room air. no s/sx of respiratory distress noted at this time. patient is currently NPO except meds. witt catheter is patent, intact, and draining. One IV site was pulled out by patient, other IV site is patent and intact. patient is to be discharged to [facility], awaiting room at this time. bed in lowest position and locked, siderails up X2, call light within reach. will continue to monitor.
[2019-04-26 20:00] VITALS: BP 166/73
--- NOTE | 2019-04-26 20:45 | Consultation ---
DATE OF CONSULTATION: 04/26/2019 MEDICAL CONSULTATION CONSULTING PHYSICIAN: Vel Patino D.O. CHIEF COMPLAINT: Hyperglycemia and hypertensive urgency. BRIEF HISTORY: An 83-year-old female from [facility], was sent to [facility] with the above-mentioned diagnosis, currently in the process of being transferred to [facility]. The patient was admitted overnight. Currently, confused in bed, not talking much. PAST MEDICAL HISTORY: Urinary tract infection, renal failure, CKD, and diabetes type 2. PAST SURGICAL HISTORY: Unknown. MEDICATIONS: Include heparin, amlodipine, insulin, Zosyn, hydralazine, and intravenous fluids. ALLERGIES: Amlodipine, codeine, lovastatin, NSAID, opiates, pioglitazone, and simvastatin. SOCIAL HISTORY: No smoking. No alcohol. No intravenous drug abuse. FAMILY HISTORY: Noncontributory. REVIEW OF SYSTEMS: Unavailable. PHYSICAL EXAMINATION: GENERAL: Confused in bed, not talking much. VITAL SIGNS: Temperature is 98 degrees, pulse is 78, respirations 20, and blood pressure 160/68. CARDIOVASCULAR: No murmurs. LUNGS: Poor air exchange. ABDOMEN: Bowel sounds positive. Nontender. Nondistended. EXTREMITIES: No cyanosis, clubbing, or edema. NEUROLOGIC: The patient moves all extremities, slightly weak. LABORATORY AND DIAGNOSTIC DATA: Hemoglobin 10.8 and platelets 141,000. BMP shows sodium 156, chloride 125, BUN and creatinine are 105 and 33.2, and glucose was initially 426 and now is 243. Troponin 0.061 INR is 0.9. Urinalysis show 3+ leukocyte esterase. ASSESSMENT: 1. Hypertensive urgency. 2. Diabetes. 3. Hyperglycemia. 4. Urinary tract infection. 5. Renal failure. 6. CKD. 7. Anemia. 8. Diabetes. PLAN: 1. Blood pressure and blood sugar control. 2. Antibiotics per Infectious Disease. 3. Dietary followup. 4. Transfer to [facility] if possible. 5. We will continue to follow this patient. Vel Patino D.O. DR: KARL JOB#: [id number] CC:
[2019-04-27] VITALS: BP 147/84
[2019-04-27] MEDS: HydrALAZINE 50mg tab ORAL SCH ×4 (00:42→17:43)
--- NOTE | 2019-04-27 03:15 | Progress Note ---
DATE: 04/26/2019 CARDIOLOGY PROGRESS NOTE SUBJECTIVE: The patient remains in the intensive care unit. She continues to have labile blood pressure readings. She is on broad-spectrum antimicrobials. She is on hypotonic fluids. OBJECTIVE: VITAL SIGNS: Blood pressure 174/90 to 147/84, heart rate 90, respiratory rate 18, and afebrile. LUNGS: Clear breath sounds. HEART: Regular rhythm and rate. Normal S1, S2 with a 1/6 systolic murmur at apex. ABDOMEN: Soft and nontender. EXTREMITIES: No edema. LABORATORY DATA: White count 10.2 and hemoglobin 10.8. Sodium 156, potassium 4.8, chloride 125, bicarb 22, BUN 105, and creatinine 3.2. Troponin 0.061. Albumin 2.6. IMPRESSION: 1. Lactic acidosis, resolved. 2. Severe dehydration and hypernatremia. 3. Hyperchloremia. 4. Acute renal failure. 5. Moderate protein-calorie malnutrition. 6. Possible sepsis. 7. Accelerated hypertension. PLAN: 1. Hypotonic IV fluids. 2. Titration of antihypertensives ongoing. 3. DVT and stress ulcer prophylaxes. 4. Glucose monitoring and insulin coverage by sliding scale. 5. Remains critical and guarded. Rios Andre M.D. DR: DAVIDA JOB#: [id number] CC:
[2019-04-27 04:00] VITALS: BP 164/78
[2019-04-27 05:17] LABS: BASOPHILS % (AUTO) 0.7 % (0.0-2.0); EOSINOPHILS % (AUTO) 3.4 % (0.0-3.0); HEMOGLOBIN 9.8 G/DL (12.0-16.0); LYMPHOCYTES % (AUTO) 16.6 % (20.0-45.0); MEAN CORPUSCULAR VOLUME 92 FL (80-99); MONOCYTES % (AUTO) 6.2 % (1.0-10.0); PLATELET COUNT 132 K/UL (150-450); RED BLOOD COUNT 3.38 M/UL (4.20-5.40); RED CELL DISTRIBUTION WIDTH 14.6 % (11.6-14.8); WHITE BLOOD COUNT 10.1 K/UL (4.8-10.8)
[2019-04-27 05:44] LABS: ANION GAP 11 mmol/L (5-15); BLOOD UREA NITROGEN 87 mg/dL (7-18); CALCIUM 9.1 MG/DL (8.5-10.1); CARBON DIOXIDE 20 MMOL/L (21-32); CHLORIDE 124 MMOL/L (98-107); POTASSIUM 4.4 MMOL/L (3.5-5.1); SODIUM 155 MMOL/L (136-145)
[2019-04-27] MEDS: Piperacillin/Tazobactam 2.25 GM in NS 110 ML IV SCH (06:01)
[2019-04-27] MEDS: NovoLOG Insulin Flexpen SUBQ SCH ×4 (06:14→20:45)
--- NOTE | 2019-04-27 07:19 | NUR ---
HAND-OFF: Report given to CYNDI Cobb. patient is in stable condition.
--- NOTE | 2019-04-27 07:20 | NUR ---
NURSE NOTES: Report received from CYNDI Khalil. Observed patient in bed, asleep, responds to verbal stimuli. On room air, no acute respiratory distress noted. Right FA IV 22g intact and patent with IV fluids infusing at prescribed rate. No s/s pain/discomfort at this time. Bed locked, alarmed and in lowest position, side rails up x3, call light left within reach. Will continue to monitor.
[2019-04-27] MEDS: Labetalol 200mg tab ORAL SCH ×2 (08:37→20:43)
[2019-04-27] MEDS: Heparin 5000 units/ml inj SUBQ SCH ×2 (08:39→20:46)
[2019-04-27 08:43] VITALS: BP 183/73
--- NOTE | 2019-04-27 11:04 | Consultation ---
History of Present Illness General Date patient seen: Apr 27, 2019 Chief Complaint: Abnormal Labs Present Illness HPI This is a pleasant 83 year old female with multiple medical comorbidities who is a [facility] resident that presented for abnormal labs and admitted for care/management. On admission noted to have abnormal sacral wound requiring care. surgery called to evaluate and assist with care. patient seen, chart reviewed, patient examined. Allergies: Coded Allergies: AMLODIPINE (Verified Allergy, Unknown, 04/25/19) CODEINE (Verified Allergy, Unknown, 04/25/19) LOVASTATIN (Verified Allergy, Unknown, 04/25/19) MILK (Verified Allergy, Unknown, 04/25/19) PIOGLITAZONE (Verified Allergy, Unknown, 04/25/19) SIMVASTATIN (Verified Allergy, Unknown, 04/25/19) Uncoded Allergies: NSAIDS (Allergy, Unknown, 04/25/19) OPIATES (Allergy, Unknown, 04/25/19) SHELLFISH-DERIVED PRODUCTS (Allergy, Unknown, 04/25/19) Medication History Scheduled Acetaminophen (Acetaminophen 8 Hour), 650 MG ORAL Q6H, (Reported) Aspirin (Aspirin), 81 MG PO DAILY, (Reported) Brinzolamide/Brimonid Tart (Simbrinza 1%-0.2% Eye Drops), 1 DROP OP THREE TIMES A DAY, (Reported) Calcitonin,[place],Synthetic (Calcitonin-[place]), 200 UNITS NS DAILY, (Reported) Cyanocobalamin (Vitamin B-12)* (Vitamin B-12*), 1,000 MCG ORAL DAILY, (Reported) Docusate Sodium* (Docusate Sodium*), 250 MG ORAL TWICE A DAY, (Reported) Ferrous Sulfate (Ferrous Sulfate), 650 MG ORAL DAILY, (Reported) Hydralazine HCl (Hydralazine HCl), 100 MG ORAL EVERY 8 HOURS, (Reported) Ibuprofen* (Motrin Ib*), 600 MG ORAL Q8H, (Reported) Insulin Glargine (Lantus), 12 UNIT SUBQ DAILY, (Reported) Isosorbide Dinitrate (Isosorbide Dinitrate), 40 MG PO BID, (Reported) Labetalol HCl (Labetalol HCl), 300 MG ORAL TID, (Reported) Latanoprost* (Xalatan*), 1 DROP BOTH EYES BEDTIME, (Reported) Levalbuterol Hcl (Xopenex*), 0.63 MG HHN Q4H, (Reported) Multivitamin (Multiple Vitamins), 1 EACH PO DAILY, (Reported) Nifedipine Er* (Nifedipine Er*), 90 MG ORAL BID, (Reported) Sennosides (Senna), 17.2 MG PO QHS, (Reported) Sorbitol (Sorbitol), 30 ML ORAL Q6HR, (Reported) Vitamin B Cmplx/Vit C/Folic AC (Nephro-Chantel Tablet), 1 TAB ORAL DAILY, (Reported ) Scheduled PRN Acetaminophen (Tylenol), 650 MG ORAL Q4HR PRN for Prn Pain/Headache/Temp > 101, (Reported) Bisacodyl (Dulcolax), 10 MG RC DAILY PRN for INEFFECTIVE ORAL MEDS, (Reported) Mineral Oil (Mineral Oil Enema), 133 ML RC DAILY PRN for Constipation, (Reported ) Ondansetron (Zofran), 4 MG ORAL Q6H PRN for Nausea & Vomiting, (Reported) Miscellaneous Medications Clonidine (Clonidine), 1 EACH TD, (Reported) Epoetin Leonid (Procrit), 8,000 UNIT SUBQ, (Reported) Insulin Regular, Human (Humulin R), 0 SUBQ, (Reported) Discontinued Medications Acetaminophen* (Acetaminophen 325MG Tablet*), 650 MG ORAL Q4H PRN for For Pain, (Reported) Discontinued Reason: Pt stopped taking med Cyanocobalamin (Vitamin B-12), 100 MCG ORAL DAILY, (Reported) Discontinued Reason: Prescription changed Docusate Sodium (Docusate Sodium), 250 MG RECTAL TWICE A DAY, (Reported) Discontinued Reason: Pt stopped taking med Latanoprost/Pf (Latanoprost 0.005% Eye Drop), 1 DROP OP, (Reported) Discontinued Reason: Pt stopped taking med Melatonin (Melatonin), 1 MG PO QHS, (Reported) Discontinued Reason: Pt stopped taking med Mineral Oil (Mineral Oil Enema), 133 ML RC, (Reported) Discontinued Reason: Pt had allergic rxn Mirtazapine* (Mirtazapine*), 15 MG ORAL BEDTIME, (Reported) Discontinued Reason: Pt stopped taking med Patient History Limited by: medical condition History Provided By: Medical Record, PMD Healthcare decision maker Resuscitation status Do Not Resuscitate Advanced Directive on File Past Medical/Surgical History Past Medical/Surgical History: (1) CKD (chronic kidney disease) stage 3, GFR 30-59 ml/min (2) Diabetes 1.5, managed as type 2 (3) ARF (acute renal failure) (4) Hypernatremia (5) Renal failure (6) Hypertensive urgency (7) Sepsis (8) Elevated troponin (9) UTI (urinary tract infection) Review of Systems ROS Narrative cannot obtain given medical condition and mental status Physical Exam General Appearance: no apparent distress Lines, tubes and drains: peripheral HEENT: mucous membranes moist, PERRL Neck: normal inspection Respiratory/Chest: normal breath sounds, decreased breath sounds Cardiovascular/Chest: normal rate Abdomen: soft, no organomegaly, no mass Extremities: other Skin Exam: other Neurologic: alert Last 24 Hour Vital Signs Date Time Temp Pulse Resp B/P (MAP) Pulse Ox O2 Delivery O2 Flow Rate FiO2 04/27/19 10:23 75 183/73 04/27/19 08:43 98.1 75 18 183/73 (109) 96 04/27/19 08:37 75 189/73 04/27/19 06:01 164/78 04/27/19 04:00 98.2 80 20 164/78 (106) 96 04/27/19 04:00 Room Air 04/27/19 04:00 77 04/27/19 00:42 147/84 04/27/19 00:00 Room Air 04/27/19 00:00 98.6 85 20 147/84 (105) 96 04/27/19 00:00 82 04/26/19 21:02 91 166/73 04/26/19 20:00 98.4 91 16 166/73 (104) 98 04/26/19 20:00 88 04/26/19 20:00 Room Air 04/26/19 17:49 174/85 04/26/19 16:00 Room Air 04/26/19 16:00 89 04/26/19 16:00 99.3 70 20 132/61 (84) 100 04/26/19 14:30 164/98 04/26/19 12:00 99.3 88 20 165/81 (109) 97 04/26/19 12:00 88 04/26/19 12:00 Room Air Intake and Output 04/26/19 04/27/19 19:00 07:00 Intake Total 235 ml 1582 ml Output Total 450 ml 1000 ml Balance -215 ml 582 ml Intake IV Total 235 ml 1582 ml Output Urine Total 450 ml 1000 ml # Bowel Movements 2 Laboratory Tests Test 04/26/19 18:00 04/27/19 03:25 Urine Random Total Protein 298 MG/DL (< 11.9) H Urine Random Sodium 56 mmol/L (20-110) Urine Creatinine 43.3 MG/DL (30.0-125.0) White Blood Count 10.1 K/UL (4.8-10.8) Red Blood Count 3.38 M/UL (4.20-5.40) L Hemoglobin 9.8 G/DL (12.0-16.0) L Hematocrit 31.0 % (37.0-47.0) L Mean Corpuscular Volume 92 FL (80-99) Mean Corpuscular Hemoglobin 29.1 PG (27.0-31.0) Mean Corpuscular Hemoglobin Concent 31.7 G/DL (32.0-36.0) L Red Cell Distribution Width 14.6 % (11.6-14.8) Platelet Count 132 K/UL (150-450) L Mean Platelet Volume 8.7 FL (6.5-10.1) Neutrophils (%) (Auto) 73.0 % (45.0-75.0) Lymphocytes (%) (Auto) 16.6 % (20.0-45.0) L Monocytes (%) (Auto) 6.2 % (1.0-10.0) Eosinophils (%) (Auto) 3.4 % (0.0-3.0) H Basophils (%) (Auto) 0.7 % (0.0-2.0) Sodium Level 155 MMOL/L (136-145) H Potassium Level 4.4 MMOL/L (3.5-5.1) Chloride Level 124 MMOL/L (98-107) H Carbon Dioxide Level 20 MMOL/L (21-32) L Anion Gap 11 mmol/L (5-15) Blood Urea Nitrogen 87 mg/dL (7-18) H Creatinine 3.0 MG/DL (0.55-1.30) H Estimat Glomerular Filtration Rate mL/min (>60) Glucose Level 223 MG/DL (74-106) H Calcium Level 9.1 MG/DL (8.5-10.1) Phosphorus Level 3.0 MG/DL (2.5-4.9) Magnesium Level 1.9 MG/DL (1.8-2.4) Height (Feet): 5 Height (Inches): 4.00 Weight (Pounds): 118 Medications Current Medications Medications (Trade) Dose Ordered Sig/Ford Route PRN Reason Start Time Stop Time Status Last Admin Dose Admin Acetaminophen (Tylenol) 650 mg Q4H PRN ORAL Mild Pain/Temp > 100.5 04/25/19 22:15 05/25/19 22:14 04/26/19 14:30 Amlodipine Besylate (Norvasc) 10 mg DAILY ORAL 04/26/19 09:00 05/26/19 08:59 04/27/19 10:23 Dextrose (Dextrose 50%) 25 ml Q30M PRN IV Hypoglycemia 04/25/19 22:15 05/25/19 22:14 Dextrose (Dextrose 50%) 50 ml Q30M PRN IV Hypoglycemia 04/25/19 22:15 05/25/19 22:14 Heparin Sodium (Porcine) (Heparin 5000 units/ml) 5,000 units EVERY 12 HOURS SUBQ 04/26/19 09:00 05/26/19 08:59 04/27/19 08:39 Hydralazine HCl (Apresoline) 50 mg Q6HR ORAL 04/26/19 00:00 05/26/19 00:00 04/27/19 06:01 Hydralazine HCl (Apresoline) 50 mg Q6HR PRN ORAL SBP above 150 04/25/19 22:15 05/25/19 22:14 Insulin Aspart (NovoLOG) BEFORE MEALS AND HS SUBQ 04/26/19 06:30 05/26/19 06:29 04/26/19 17:50 Labetalol HCl (Normodyne) 300 mg Q12HR ORAL 04/26/19 09:00 05/26/19 08:59 04/27/19 08:37 Piperacillin Sod/ Tazobactam Sod 2.25 gm/Sodium Chloride 110 ml @ 220 mls/hr EVERY 8 HOURS IV 04/26/19 06:00 05/03/19 05:59 04/27/19 06:01 Sodium Chloride 1,000 ml @ 125 mls/hr Q8H IV 04/25/19 22:15 05/25/19 22:14 04/27/19 06:01 Assessment/Plan Problem List: (1) Decubitus ulcer of sacral region, stage 4 Assessment & Plan: PT presented on admission with full thickness pressure injury. Base of wound with 100% mixed eschar /slough (+) epibole along edges (L) 1cm x (W)1.4cm. No odor or exudate noted. Hyperpigmentation periwound. Both heels dry and callused . Stable dry eschar R heel. Periwound callused without erythema Non-tender when palpated. Tx.Plan: Cleanse sacral wound with Saline. Apply Therahoney. Apply Moisture Barrier periwound. Cover with Optifoam drsg. Change every 3 days and prn. Apply Cavilon Skin Barrier to both heels. Cover each heel with Optifoam drsg. Change every 3 days and prn. Reposition at least every 2hours or as tolerated. APM/ANDRE mattress. Off-load heels with pillow. 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 * Altered nutrition related lab values R/T fluid deficit, ARF, DM, clinical condition as evidenced by elev Na (156), elev BUN (105), elev creat (3.2), elev BG (589* ->243), elev BPs (208/100, 202/86). CURRENT DIET:NPO PO DIET RECOMMENDATIONS: LOW NA, CCHO LOW/ texture per WAX PATTERN ASSEMBLER ADDITIONAL RECOMMENDATIONS: * Calibrated bedscale wt for accurate CBW * WAX PATTERN ASSEMBLER eval for appropriate texture * Consider long acting insulin for improved BGs * Monitor lytes and renal fxn * CONSIDER IGE TEST FOR MILK ALLERGY: MILK listed on the allergy list. However, pt on 8oz milk + ice cream TID @ meals, HPN @ SNF * Wound healing: add MVI x 1, Vit C 500mg QD, Mark 1pkt BID ICD Codes: A41.9 - Sepsis, unspecified organism SNOMED: 62565571 Qualifiers: Qualified Codes: A41.9 - Sepsis, unspecified organism Julian Muse Apr 27, 2019 11:04
--- NOTE | 2019-04-27 11:46 | NUR ---
*-* INSURANCE *-* ALL CLINICALS AND REVIEW HAVE BEEN FAXED TO: [facility] T:[phone] F:[phone]
[2019-04-27 12:00] VITALS: BP 174/65
--- NOTE | 2019-04-27 12:37 | General Progress Note ---
Assessment/Plan Problem List: (1) CKD (chronic kidney disease) stage 3, GFR 30-59 ml/min ICD Codes: N18.3 - Chronic kidney disease, stage 3 (moderate) SNOMED: 160053914 (2) Diabetes 1.5, managed as type 2 ICD Codes: E13.9 - Other specified diabetes mellitus without complications SNOMED: 200629054 (3) Hypertensive urgency ICD Codes: I16.0 - Hypertensive urgency SNOMED: 693842871 (4) UTI (urinary tract infection) ICD Codes: N39.0 - Urinary tract infection, site not specified SNOMED: 30581702 Qualifiers: Qualified Codes: N39.0 - Urinary tract infection, site not specified Status: unchanged Assessment/Plan: bp bs control cbc bmp am transfer to [facility] Subjective Constitutional: Reports: weakness Allergies: Coded Allergies: AMLODIPINE (Verified Allergy, Unknown, 04/25/19) CODEINE (Verified Allergy, Unknown, 04/25/19) LOVASTATIN (Verified Allergy, Unknown, 04/25/19) MILK (Verified Allergy, Unknown, 04/25/19) PIOGLITAZONE (Verified Allergy, Unknown, 04/25/19) SIMVASTATIN (Verified Allergy, Unknown, 04/25/19) Uncoded Allergies: NSAIDS (Allergy, Unknown, 04/25/19) OPIATES (Allergy, Unknown, 04/25/19) SHELLFISH-DERIVED PRODUCTS (Allergy, Unknown, 04/25/19) All Systems: reviewed and negative except above Subjective confused in bed Objective Last 24 Hour Vital Signs Date Time Temp Pulse Resp B/P (MAP) Pulse Ox O2 Delivery O2 Flow Rate FiO2 04/27/19 12:34 174/85 04/27/19 12:00 Room Air 04/27/19 10:23 75 183/73 04/27/19 08:43 98.1 75 18 183/73 (109) 96 04/27/19 08:37 75 189/73 04/27/19 08:00 75 04/27/19 08:00 Room Air 04/27/19 06:01 164/78 04/27/19 04:00 98.2 80 20 164/78 (106) 96 04/27/19 04:00 Room Air 04/27/19 04:00 77 04/27/19 00:42 147/84 04/27/19 00:00 Room Air 04/27/19 00:00 98.6 85 20 147/84 (105) 96 04/27/19 00:00 82 04/26/19 21:02 91 166/73 04/26/19 20:00 98.4 91 16 166/73 (104) 98 04/26/19 20:00 88 04/26/19 20:00 Room Air 04/26/19 17:49 174/85 04/26/19 16:00 Room Air 04/26/19 16:00 89 04/26/19 16:00 99.3 70 20 132/61 (84) 100 04/26/19 14:30 164/98 Intake and Output 04/26/19 04/27/19 19:00 07:00 Intake Total 235 ml 1582 ml Output Total 450 ml 1000 ml Balance -215 ml 582 ml Intake IV Total 235 ml 1582 ml Output Urine Total 450 ml 1000 ml # Bowel Movements 2 Laboratory Tests 04/26/19 18:00: Urine Random Total Protein 298H, Urine Random Sodium 56, Urine Creatinine 43.3 04/27/19 03:25: White Blood Count 10.1, Red Blood Count 3.38L, Hemoglobin 9.8L, Hematocrit 31.0L , Mean Corpuscular Volume 92, Mean Corpuscular Hemoglobin 29.1, Mean Corpuscular Hemoglobin Concent 31.7L, Red Cell Distribution Width 14.6, Platelet Count 132L, Mean Platelet Volume 8.7, Neutrophils (%) (Auto) 73.0, Lymphocytes (%) (Auto) 16.6L, Monocytes (%) (Auto) 6.2, Eosinophils (%) (Auto) 3.4H, Basophils (%) (Auto) 0.7, Sodium Level 155H, Potassium Level 4.4, Chloride Level 124H, Carbon Dioxide Level 20L, Anion Gap 11, Blood Urea Nitrogen 87H, Creatinine 3.0H, Estimat Glomerular Filtration Rate , Glucose Level 223H, Calcium Level 9.1, Phosphorus Level 3.0, Magnesium Level 1.9 Height (Feet): 5 Height (Inches): 4.00 Weight (Pounds): 118 General Appearance: lethargic EENT: normal ENT inspection Neck: normal alignment Cardiovascular: normal peripheral pulses, normal rate, regular rhythm Respiratory/Chest: chest wall non-tender, lungs clear, normal breath sounds Abdomen: normal bowel sounds, non tender, soft Extremities: normal inspection Edema: no edema noted Arm (L), no edema noted Arm (R), no edema noted Leg (L), no edema noted Leg (R), no edema noted Pedal (L), no edema noted Pedal (R), no edema noted Generalized Neurologic: motor weakness Skin: normal pigmentation, warm/dry Vel Patino DO Apr 27, 2019 12:37
--- NOTE | 2019-04-27 13:23 | General Progress Note ---
Assessment/Plan Status: unchanged Assessment/Plan: IMPRESSION hypertensive emergency acute on chronic renal failure acute on chronic encephalopathy hyperglycemia moderate protein calorie malnutrition hypernatremia UTI PLAN care noted cards appreciated hypotonic fluids IV antibiotics--> PO monitor LOC start diet transfer to [facility] impression, plan, and exam edited and reviewed in detail care discussed with RN Subjective Allergies: Coded Allergies: AMLODIPINE (Verified Allergy, Unknown, 04/25/19) CODEINE (Verified Allergy, Unknown, 04/25/19) LOVASTATIN (Verified Allergy, Unknown, 04/25/19) MILK (Verified Allergy, Unknown, 04/25/19) PIOGLITAZONE (Verified Allergy, Unknown, 04/25/19) SIMVASTATIN (Verified Allergy, Unknown, 04/25/19) Uncoded Allergies: NSAIDS (Allergy, Unknown, 04/25/19) OPIATES (Allergy, Unknown, 04/25/19) SHELLFISH-DERIVED PRODUCTS (Allergy, Unknown, 04/25/19) Subjective comfortable d/w RN no acute issues Objective Last 24 Hour Vital Signs Date Time Temp Pulse Resp B/P (MAP) Pulse Ox O2 Delivery O2 Flow Rate FiO2 04/27/19 12:34 174/85 04/27/19 12:00 Room Air 04/27/19 10:23 75 183/73 04/27/19 08:43 98.1 75 18 183/73 (109) 96 04/27/19 08:37 75 189/73 04/27/19 08:00 75 04/27/19 08:00 Room Air 04/27/19 06:01 164/78 04/27/19 04:00 98.2 80 20 164/78 (106) 96 04/27/19 04:00 Room Air 04/27/19 04:00 77 04/27/19 00:42 147/84 04/27/19 00:00 Room Air 04/27/19 00:00 98.6 85 20 147/84 (105) 96 04/27/19 00:00 82 04/26/19 21:02 91 166/73 04/26/19 20:00 98.4 91 16 166/73 (104) 98 04/26/19 20:00 88 04/26/19 20:00 Room Air 04/26/19 17:49 174/85 04/26/19 16:00 Room Air 04/26/19 16:00 89 04/26/19 16:00 99.3 70 20 132/61 (84) 100 04/26/19 14:30 164/98 Intake and Output 04/26/19 04/27/19 18:59 06:59 Intake Total 125 ml 1582 ml Output Total 450 ml 1000 ml Balance -325 ml 582 ml Intake IV Total 125 ml 1582 ml Output Urine Total 450 ml 1000 ml # Bowel Movements 2 Laboratory Tests 04/26/19 18:00: Urine Random Total Protein 298H, Urine Random Sodium 56, Urine Creatinine 43.3 04/27/19 03:25: White Blood Count 10.1, Red Blood Count 3.38L, Hemoglobin 9.8L, Hematocrit 31.0L , Mean Corpuscular Volume 92, Mean Corpuscular Hemoglobin 29.1, Mean Corpuscular Hemoglobin Concent 31.7L, Red Cell Distribution Width 14.6, Platelet Count 132L, Mean Platelet Volume 8.7, Neutrophils (%) (Auto) 73.0, Lymphocytes (%) (Auto) 16.6L, Monocytes (%) (Auto) 6.2, Eosinophils (%) (Auto) 3.4H, Basophils (%) (Auto) 0.7, Sodium Level 155H, Potassium Level 4.4, Chloride Level 124H, Carbon Dioxide Level 20L, Anion Gap 11, Blood Urea Nitrogen 87H, Creatinine 3.0H, Estimat Glomerular Filtration Rate , Glucose Level 223H, Calcium Level 9.1, Phosphorus Level 3.0, Magnesium Level 1.9 Height (Feet): 5 Height (Inches): 4.00 Weight (Pounds): 118 Objective WDWN NAD clear breath sounds bilaterally without rhonchi or wheeze [id number] without MRG NABS nontender no HSM no CCE weak Nain Pendleton MD Apr 27, 2019 13:23
[2019-04-27] MEDS ORDERED: Piperacillin/Tazobactam 3.375 GM in NS 110 ML IVPB SCH (14:00)
--- NOTE | 2019-04-27 14:11 | Physician Query ---
Clarification is required for compliance, coding accuracy, and to reflect severity of illness for this patient Dear Dr. Nain Pendleton Date: 04/27/2019 [employer]or/CDS Name: Faith DAVID: 83-year-old female... admitted for elevated blood pressure and possible sepsis...IMPRESSION hypertensive emergency, acute on chronic renal failure, acute on chronic encephalopathy, hyperglycemia, moderate protein calorie malnutrition, hypernatremia Labs: 04/25 Na 156, K 5.5, Cl 125, CO2 20, Creat 3.5, BUN 115 Treatment: IVF, IV pip-tazo, cefepime Please specify the type of encephalopathy: [x] Metabolic Encephalopathy [] Toxic Encephalopathy [] Toxic - Metabolic Encephalopathy [] Dementia with delirium [] Encephalopathy, Other [] Other: [] Not Applicable Present on Admission: [x] Yes [] No [] Clinically Undetermined Physician signature Date Please also document in your Progress Notes and/or Discharge Summary and indicate if the condition was present on admission. MTDD
--- NOTE | 2019-04-27 15:55 | NUR ---
NURSE NOTES:WOUND CARE NOTES:PT presented on admission with full thickness pressure injury. Base of wound with 100% mixed eschar /slough (+) epibole along edges (L)1cm x (W)1.4cm. No odor or exudate noted. Hyperpigmentation periwound. Both heels dry and callused . Stable dry eschar R heel. Periwound callused without erythema Non-tender when palpated. Tx.Plan:Cleanse sacral wound with Saline. Apply Therahoney. Apply Moisture Barrier periwound. Cover with Optifoam drsg. Change every 3 days and prn. Apply Cavilon Skin Barrier to both heels. Cover each heel with Optifoam drsg. Change every 3 days and prn. Reposition at least every 2hours or as tolerated. APM/ANDRE mattress. Off-load heels with pillow.
[2019-04-27 16:00] VITALS: BP 147/86
--- NOTE | 2019-04-27 19:10 | NUR ---
NURSE NOTES: Received patient from Jordyn HANNA. Patient is asleep and is on room air, tolerating well, showing no signs of respiratory distress. Sawyer catheter is patent and draining. IV site is right forearm 22g that is patent, asymptomatic, and receiving 1/2NS at 125cc/hr. Bed is locked, placed in lowest position, side rails up x3, bed alarm on, call light within reach. Will continue to monitor.
--- NOTE | 2019-04-27 19:15 | NUR ---
HAND-OFF: Report given to CYNDI Ji. Patient in stable condition.
[2019-04-27 20:00] VITALS: BP 181/92
--- NOTE | 2019-04-27 23:35 | NUR ---
TRANSFER TO FLOOR: Patient transferred to [facility], per Dr. Pendleton. Report given to Misbah HANNA. Belongings given to patient. Family and or S/O informed of transfer.
--- NOTE | 2019-04-27 23:40 | NUR ---
NURSE NOTES: Pt received from MARIAN In stable condition. Pt is awake and verbal. No acute distress noted. Report received from MARIAN RN Soraida. Pt has 1/2 Ns running at 125ml/hr. All belongings transferred.Sacral dressing intact. Wound picture was taken today. Pt is fall risk. Bed locked low in position,side rails up, call light within reach. Bed alarm on. Pt oriented to the unit. Pt will be monitored.
[2019-04-28] VITALS (7 sets, daily range): BP systolic 132–191; BP diastolic 71–92
[2019-04-28] MEDS ORDERED: HydrALAZINE 50mg tab ORAL PRN
--- NOTE | 2019-04-28 00:15 | Progress Note ---
DATE: 04/27/2019 CARDIOLOGY PROGRESS NOTE SUBJECTIVE: Awake, alert, less confusion. Blood pressure is still labile. Remains on IV hydration. OBJECTIVE: VITAL SIGNS: Blood pressure 174/85, pulse 75, respirations 18, and afebrile. LUNGS: Clear. CARDIAC: Regular rate and rhythm. Normal S1, S2 with a fourth heart sound. ABDOMEN: Soft and nontender. No edema. LABORATORY DATA: Urine culture shows E. coli. 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 White count 10, hemoglobin 9.8. Sodium 155, potassium 4.4, bicarbonate 20, chloride 124. BUN 87, creatinine 3. Glucose 223. IMPRESSION: 1. Hypertensive urgency. 2. Dehydration. 3. Hypernatremia. 4. Urinary tract infection with sepsis. 5. Metabolic acidosis. 6. Type 2 diabetes, out of control. 7. Acute on chronic renal failure. 8. Moderate protein-calorie malnutrition. PLAN: 1. Antimicrobials. 2. Respiratory hygiene. 3. Hypotonic IV fluids. 4. Monitor volume status and cardiorenal parameters. 5. DVT and stress ulcer prophylaxis. 6. Titrating antihypertensives. Valente Chong JOB#: [id number] CC:
[2019-04-28] MEDS: HydrALAZINE 50mg tab ORAL SCH ×5 (01:14→17:17)
--- NOTE | 2019-04-28 04:37 | NUR ---
NURSE NOTES: Pt is in bed, asleep. No acute distress noted.
[2019-04-28] MEDS: NovoLOG Insulin Flexpen SUBQ SCH ×4 (06:08→20:27)
--- NOTE | 2019-04-28 07:05 | NUR ---
HAND-OFF: Report given to Ami Bledsoe LVN.
--- NOTE | 2019-04-28 08:00 | NUR ---
NURSE NOTES: Received patient is A/A/Ox2, confused but responsive to verbal commands. denies pain at this time. on room air. no s/sx of respiratory distress noted at this time. witt catheter is patent, intact, and draining well with clear yellow color urine. patient is to be discharged to [place], awaiting room at this time. bed in lowest position and locked, siderails up X2, call light within reach. will continue to monitor.
[2019-04-28 08:16] LABS: BASOPHILS % (AUTO) 0.8 % (0.0-2.0); HEMATOCRIT 32.8 % (37.0-47.0); HEMOGLOBIN 10.5 G/DL (12.0-16.0); LYMPHOCYTES % (AUTO) 22.8 % (20.0-45.0); MEAN CORPUSCULAR VOLUME 91 FL (80-99); MONOCYTES % (AUTO) 5.4 % (1.0-10.0); NEUTROPHILS % (AUTO) 65.9 % (45.0-75.0); PLATELET COUNT 102 K/UL (150-450); RED BLOOD COUNT 3.62 M/UL (4.20-5.40); RED CELL DISTRIBUTION WIDTH 14.2 % (11.6-14.8); WHITE BLOOD COUNT 7.3 K/UL (4.8-10.8)
[2019-04-28 08:38] LABS: ANION GAP 11 mmol/L (5-15); BLOOD UREA NITROGEN 66 mg/dL (7-18); CALCIUM 9.3 MG/DL (8.5-10.1); CARBON DIOXIDE 20 MMOL/L (21-32); CHLORIDE 117 MMOL/L (98-107); CREATININE 2.7 MG/DL (0.55-1.30); POTASSIUM 3.6 MMOL/L (3.5-5.1); SODIUM 147 MMOL/L (136-145)
--- NOTE | 2019-04-28 08:38 | Nephrology Progress Note ---
Assessment/Plan Problem List: (1) ARF (acute renal failure) Assessment & Plan: - likely vasomotor sec to volume depletion free h2o deficit. -cont hypotonic saline -control bp and Blood sugars -adjust meds to lower crcl. -Noted renal US to eval kidney size, r/o obstruction -urine lytes ICD Codes: N17.9 - Acute kidney failure, unspecified SNOMED: 58716121 (2) CKD (chronic kidney disease) stage 3, GFR 30-59 ml/min Assessment & Plan: -will try to get baseline. -check UA for casts and eval proteinuria -cont bs control to retard progression -cont bp control -watch volume closely, keep witt -avoid nsaids, contrast ICD Codes: N18.3 - Chronic kidney disease, stage 3 (moderate) SNOMED: 953556674 (3) Diabetes 1.5, managed as type 2 Assessment & Plan: -watch bs, check hga1c, cont. SSi ICD Codes: E13.9 - Other specified diabetes mellitus without complications SNOMED: 042363971 (4) Hypertensive urgency ICD Codes: I16.0 - Hypertensive urgency SNOMED: 431688829 (5) UTI (urinary tract infection) ICD Codes: N39.0 - Urinary tract infection, site not specified SNOMED: 51999301 Qualifiers: Qualified Codes: N39.0 - Urinary tract infection, site not specified (6) Sepsis Assessment & Plan: -cont iv abx, await final cultures ICD Codes: A41.9 - Sepsis, unspecified organism SNOMED: 14533348 Qualifiers: Qualified Codes: A41.9 - Sepsis, unspecified organism (7) Hypernatremia Assessment & Plan: -cont ivf hypotonic, has 5-6 liter of free water deficit ICD Codes: E87.0 - Hyperosmolality and hypernatremia SNOMED: 774825322 Status: unchanged Subjective Date patient seen: Apr 27, 2019 ROS Limited/Unobtainable: Yes Allergies: Coded Allergies: AMLODIPINE (Verified Allergy, Unknown, 04/25/19) CODEINE (Verified Allergy, Unknown, 04/25/19) LOVASTATIN (Verified Allergy, Unknown, 04/25/19) MILK (Verified Allergy, Unknown, 04/25/19) PIOGLITAZONE (Verified Allergy, Unknown, 04/25/19) SIMVASTATIN (Verified Allergy, Unknown, 04/25/19) Uncoded Allergies: NSAIDS (Allergy, Unknown, 04/25/19) OPIATES (Allergy, Unknown, 04/25/19) SHELLFISH-DERIVED PRODUCTS (Allergy, Unknown, 04/25/19) Subjective pt. seen and examined good uop feels better. sienna us shows chronicity na stil high urine lytes noted Objective Last 24 Hour Vital Signs Date Time Temp Pulse Resp B/P (MAP) Pulse Ox O2 Delivery O2 Flow Rate FiO2 04/28/19 06:00 152/82 04/28/19 04:00 98.7 77 16 152/82 (105) 98 04/28/19 01:14 132/78 04/28/19 00:00 99.0 74 17 132/78 (96) 98 04/27/19 20:43 71 181/92 04/27/19 20:00 97.7 71 24 181/92 (121) 100 04/27/19 20:00 Room Air 04/27/19 19:03 67 04/27/19 17:43 147/86 04/27/19 16:00 99.1 74 21 147/86 (106) 97 04/27/19 16:00 Room Air 04/27/19 16:00 73 04/27/19 12:34 174/85 04/27/19 12:00 Room Air 04/27/19 12:00 98.0 74 19 174/65 (101) 96 04/27/19 11:53 69 04/27/19 10:23 75 183/73 04/27/19 08:43 98.1 75 18 183/73 (109) 96 04/27/19 08:37 75 189/73 Intake and Output 04/27/19 04/28/19 19:00 07:00 Intake Total 1689.533 ml 1000 ml Output Total 650 ml 975 ml Balance 1039.533 ml 25 ml Intake Oral 350 ml IV Total 1339.533 ml 1000 ml Output Urine Total 650 ml 975 ml # Bowel Movements 1 Laboratory Tests 04/28/19 07:38: White Blood Count 7.3, Red Blood Count 3.62L, Hemoglobin 10.5L, Hematocrit 32.8L , Mean Corpuscular Volume 91, Mean Corpuscular Hemoglobin 29.1, Mean Corpuscular Hemoglobin Concent 32.1, Red Cell Distribution Width 14.2, Platelet Count 102L, Mean Platelet Volume 7.1, Neutrophils (%) (Auto) 65.9, Lymphocytes ( %) (Auto) 22.8, Monocytes (%) (Auto) 5.4, Eosinophils (%) (Auto) 5.0H, Basophils (%) (Auto) 0.8, Sodium Level [Pending], Potassium Level [Pending], Chloride Level [Pending], Carbon Dioxide Level [Pending], Blood Urea Nitrogen [ Pending], Creatinine [Pending], Estimat Glomerular Filtration Rate [Pending], Glucose Level [Pending], Calcium Level [Pending] Height (Feet): 5 Height (Inches): 4.00 Weight (Pounds): 120 General Appearance: no apparent distress, lethargic, confused EENT: PERRL/EOMI Neck: supple Cardiovascular: normal rate, regular rhythm Respiratory/Chest: decreased breath sounds, crackles/rales Abdomen: soft Aly De Los Santos M.D. Apr 28, 2019 08:38
[2019-04-28] MEDS: Labetalol 200mg tab ORAL SCH ×2 (08:39→20:15)
--- NOTE | 2019-04-28 08:39 | Nephrology Progress Note ---
Assessment/Plan Problem List: (1) ARF (acute renal failure) Assessment & Plan: - likely vasomotor sec to volume depletion free h2o deficit. -cont hypotonic saline -control bp and Blood sugars -adjust meds to lower crcl. -Noted renal US to eval kidney size, r/o obstruction -urine lytes ICD Codes: N17.9 - Acute kidney failure, unspecified SNOMED: 54387674 (2) CKD (chronic kidney disease) stage 3, GFR 30-59 ml/min Assessment & Plan: -will try to get baseline. -check UA for casts and eval proteinuria -cont bs control to retard progression -cont bp control -watch volume closely, keep witt -avoid nsaids, contrast ICD Codes: N18.3 - Chronic kidney disease, stage 3 (moderate) SNOMED: 163868191 (3) Diabetes 1.5, managed as type 2 Assessment & Plan: -watch bs, check hga1c, cont. SSi ICD Codes: E13.9 - Other specified diabetes mellitus without complications SNOMED: 985399326 (4) Hypertensive urgency ICD Codes: I16.0 - Hypertensive urgency SNOMED: 415922131 (5) UTI (urinary tract infection) ICD Codes: N39.0 - Urinary tract infection, site not specified SNOMED: 31610064 Qualifiers: Qualified Codes: N39.0 - Urinary tract infection, site not specified (6) Sepsis Assessment & Plan: -cont iv abx, await final cultures ICD Codes: A41.9 - Sepsis, unspecified organism SNOMED: 60513442 Qualifiers: Qualified Codes: A41.9 - Sepsis, unspecified organism (7) Hypernatremia Assessment & Plan: -cont ivf hypotonic, has 5-6 liter of free water deficit ICD Codes: E87.0 - Hyperosmolality and hypernatremia SNOMED: 794841758 Status: unchanged Subjective Date patient seen: Apr 28, 2019 Allergies: Coded Allergies: AMLODIPINE (Verified Allergy, Unknown, 04/25/19) CODEINE (Verified Allergy, Unknown, 04/25/19) LOVASTATIN (Verified Allergy, Unknown, 04/25/19) MILK (Verified Allergy, Unknown, 04/25/19) PIOGLITAZONE (Verified Allergy, Unknown, 04/25/19) SIMVASTATIN (Verified Allergy, Unknown, 04/25/19) Uncoded Allergies: NSAIDS (Allergy, Unknown, 04/25/19) OPIATES (Allergy, Unknown, 04/25/19) SHELLFISH-DERIVED PRODUCTS (Allergy, Unknown, 04/25/19) Subjective pt. seen and examined good uop labs pending cards evalnoted sienna us shows chronicity na stil high on d5w now urine lytes noted Objective Last 24 Hour Vital Signs Date Time Temp Pulse Resp B/P (MAP) Pulse Ox O2 Delivery O2 Flow Rate FiO2 04/28/19 06:00 152/82 04/28/19 04:00 98.7 77 16 152/82 (105) 98 04/28/19 01:14 132/78 04/28/19 00:00 99.0 74 17 132/78 (96) 98 04/27/19 20:43 71 181/92 04/27/19 20:00 97.7 71 24 181/92 (121) 100 04/27/19 20:00 Room Air 04/27/19 19:03 67 04/27/19 17:43 147/86 04/27/19 16:00 99.1 74 21 147/86 (106) 97 04/27/19 16:00 Room Air 04/27/19 16:00 73 04/27/19 12:34 174/85 04/27/19 12:00 Room Air 04/27/19 12:00 98.0 74 19 174/65 (101) 96 04/27/19 11:53 69 04/27/19 10:23 75 183/73 04/27/19 08:43 98.1 75 18 183/73 (109) 96 Intake and Output 04/27/19 04/28/19 19:00 07:00 Intake Total 1689.533 ml 1000 ml Output Total 650 ml 975 ml Balance 1039.533 ml 25 ml Intake Oral 350 ml IV Total 1339.533 ml 1000 ml Output Urine Total 650 ml 975 ml # Bowel Movements 1 Laboratory Tests 04/28/19 07:38: White Blood Count 7.3, Red Blood Count 3.62L, Hemoglobin 10.5L, Hematocrit 32.8L , Mean Corpuscular Volume 91, Mean Corpuscular Hemoglobin 29.1, Mean Corpuscular Hemoglobin Concent 32.1, Red Cell Distribution Width 14.2, Platelet Count 102L, Mean Platelet Volume 7.1, Neutrophils (%) (Auto) 65.9, Lymphocytes ( %) (Auto) 22.8, Monocytes (%) (Auto) 5.4, Eosinophils (%) (Auto) 5.0H, Basophils (%) (Auto) 0.8, Sodium Level [Pending], Potassium Level [Pending], Chloride Level [Pending], Carbon Dioxide Level [Pending], Blood Urea Nitrogen [ Pending], Creatinine [Pending], Estimat Glomerular Filtration Rate [Pending], Glucose Level [Pending], Calcium Level [Pending] Height (Feet): 5 Height (Inches): 4.00 Weight (Pounds): 120 Aly De Los Santos M.D. Apr 28, 2019 08:39
[2019-04-28] MEDS: Heparin 5000 units/ml inj SUBQ SCH ×2 (08:40→20:15)
--- NOTE | 2019-04-28 11:08 | NUR ---
*-* INSURANCE *-* ALL CLINICALS AND REVIEW HAVE BEEN FAXED TO: [facility] T:[phone] F:[phone]
--- NOTE | 2019-04-28 12:46 | NUR ---
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 HYPERNATREMIA VS: BP 165/92, P 85, T 97.1, RR 18, SpO2 97 RBC 3.62, H&H 10.5/32.8, Na 147, BUN 66, CR 2.7 IS:NOVOLOG SUBQ APRESOLINE 50mg NORVASC 10mg LABETALOL 300mg D5W x1L IV AWAITING TRANSFER TO [facility]
--- NOTE | 2019-04-28 13:17 | General Progress Note ---
Assessment/Plan Problem List: (1) CKD (chronic kidney disease) stage 3, GFR 30-59 ml/min ICD Codes: N18.3 - Chronic kidney disease, stage 3 (moderate) SNOMED: 481054270 (2) Diabetes 1.5, managed as type 2 ICD Codes: E13.9 - Other specified diabetes mellitus without complications SNOMED: 658493709 (3) Hypertensive urgency ICD Codes: I16.0 - Hypertensive urgency SNOMED: 032794614 (4) UTI (urinary tract infection) ICD Codes: N39.0 - Urinary tract infection, site not specified SNOMED: 86162042 Qualifiers: Qualified Codes: N39.0 - Urinary tract infection, site not specified Status: unchanged Assessment/Plan: bp bs control cbc bmp am transfer to [facility] Subjective Constitutional: Reports: weakness Allergies: Coded Allergies: AMLODIPINE (Verified Allergy, Unknown, 04/25/19) CODEINE (Verified Allergy, Unknown, 04/25/19) LOVASTATIN (Verified Allergy, Unknown, 04/25/19) MILK (Verified Allergy, Unknown, 04/25/19) PIOGLITAZONE (Verified Allergy, Unknown, 04/25/19) SIMVASTATIN (Verified Allergy, Unknown, 04/25/19) Uncoded Allergies: NSAIDS (Allergy, Unknown, 04/25/19) OPIATES (Allergy, Unknown, 04/25/19) SHELLFISH-DERIVED PRODUCTS (Allergy, Unknown, 04/25/19) All Systems: reviewed and negative except above Subjective confused in bed Objective Last 24 Hour Vital Signs Date Time Temp Pulse Resp B/P (MAP) Pulse Ox O2 Delivery O2 Flow Rate FiO2 04/28/19 12:29 157/71 04/28/19 11:51 97.8 69 18 157/71 (99) 97 04/28/19 09:00 Room Air 04/28/19 08:39 85 165/92 04/28/19 08:39 85 165/92 04/28/19 08:00 97.1 85 18 165/92 (116) 98 04/28/19 06:00 152/82 04/28/19 04:00 98.7 77 16 152/82 (105) 98 04/28/19 01:14 132/78 04/28/19 00:00 99.0 74 17 132/78 (96) 98 04/27/19 20:43 71 181/92 04/27/19 20:00 97.7 71 24 181/92 (121) 100 04/27/19 20:00 Room Air 04/27/19 19:03 67 04/27/19 17:43 147/86 04/27/19 16:00 99.1 74 21 147/86 (106) 97 04/27/19 16:00 Room Air 04/27/19 16:00 73 Intake and Output 04/27/19 04/28/19 19:00 07:00 Intake Total 1689.533 ml 1000 ml Output Total 650 ml 975 ml Balance 1039.533 ml 25 ml Intake Oral 350 ml IV Total 1339.533 ml 1000 ml Output Urine Total 650 ml 975 ml # Bowel Movements 1 Laboratory Tests 04/28/19 07:38: White Blood Count 7.3, Red Blood Count 3.62L, Hemoglobin 10.5L, Hematocrit 32.8L , Mean Corpuscular Volume 91, Mean Corpuscular Hemoglobin 29.1, Mean Corpuscular Hemoglobin Concent 32.1, Red Cell Distribution Width 14.2, Platelet Count 102L, Mean Platelet Volume 7.1, Neutrophils (%) (Auto) 65.9, Lymphocytes ( %) (Auto) 22.8, Monocytes (%) (Auto) 5.4, Eosinophils (%) (Auto) 5.0H, Basophils (%) (Auto) 0.8, Sodium Level 147H, Potassium Level 3.6, Chloride Level 117H, Carbon Dioxide Level 20L, Anion Gap 11, Blood Urea Nitrogen 66H, Creatinine 2.7H, Estimat Glomerular Filtration Rate , Glucose Level 206H, Calcium Level 9.3 Height (Feet): 5 Height (Inches): 4.00 Weight (Pounds): 120 General Appearance: lethargic EENT: normal ENT inspection Neck: normal alignment Cardiovascular: normal peripheral pulses, normal rate, regular rhythm Respiratory/Chest: chest wall non-tender, lungs clear, normal breath sounds Abdomen: normal bowel sounds, non tender, soft Extremities: normal inspection Edema: no edema noted Arm (L), no edema noted Arm (R), no edema noted Leg (L), no edema noted Leg (R), no edema noted Pedal (L), no edema noted Pedal (R), no edema noted Generalized Neurologic: motor weakness Skin: normal pigmentation, warm/dry Vel Patino DO Apr 28, 2019 13:17
[2019-04-28] MEDS ORDERED: Cephalexin 250mg Cap ORAL SCH (15:00)
[2019-04-28] MEDS: Cephalexin 250mg Cap ORAL SCH (17:16)
--- NOTE | 2019-04-28 18:07 | General Progress Note ---
Assessment/Plan Status: unchanged Assessment/Plan: IMPRESSION hypertensive emergency acute on chronic renal failure acute on chronic encephalopathy hyperglycemia moderate protein calorie malnutrition hypernatremia UTI PLAN care noted hypotonic fluids IV antibiotics--> PO adequate tolerating diet transfer to SNF impression, plan, and exam edited and reviewed in detail care discussed with RN Subjective Allergies: Coded Allergies: AMLODIPINE (Verified Allergy, Unknown, 04/25/19) CODEINE (Verified Allergy, Unknown, 04/25/19) LOVASTATIN (Verified Allergy, Unknown, 04/25/19) MILK (Verified Allergy, Unknown, 04/25/19) PIOGLITAZONE (Verified Allergy, Unknown, 04/25/19) SIMVASTATIN (Verified Allergy, Unknown, 04/25/19) Uncoded Allergies: NSAIDS (Allergy, Unknown, 04/25/19) OPIATES (Allergy, Unknown, 04/25/19) SHELLFISH-DERIVED PRODUCTS (Allergy, Unknown, 04/25/19) Subjective comfortable d/w RN no acute issues Objective Last 24 Hour Vital Signs Date Time Temp Pulse Resp B/P (MAP) Pulse Ox O2 Delivery O2 Flow Rate FiO2 04/28/19 17:17 144/76 04/28/19 16:00 98.1 79 18 144/76 (98) 94 04/28/19 12:29 157/71 04/28/19 11:51 97.8 69 18 157/71 (99) 97 04/28/19 09:00 Room Air 04/28/19 08:39 85 165/92 04/28/19 08:39 85 165/92 04/28/19 08:00 97.1 85 18 165/92 (116) 98 04/28/19 06:00 152/82 04/28/19 04:00 98.7 77 16 152/82 (105) 98 04/28/19 01:14 132/78 04/28/19 00:00 99.0 74 17 132/78 (96) 98 04/27/19 20:43 71 181/92 04/27/19 20:00 97.7 71 24 181/92 (121) 100 04/27/19 20:00 Room Air 04/27/19 19:03 67 Intake and Output 04/27/19 04/28/19 18:59 06:59 Intake Total 1799.533 ml 1125 ml Output Total 650 ml 975 ml Balance 1149.533 ml 150 ml Intake Oral 350 ml IV Total 1449.533 ml 1125 ml Output Urine Total 650 ml 975 ml # Bowel Movements 1 Laboratory Tests 04/28/19 07:38: White Blood Count 7.3, Red Blood Count 3.62L, Hemoglobin 10.5L, Hematocrit 32.8L , Mean Corpuscular Volume 91, Mean Corpuscular Hemoglobin 29.1, Mean Corpuscular Hemoglobin Concent 32.1, Red Cell Distribution Width 14.2, Platelet Count 102L, Mean Platelet Volume 7.1, Neutrophils (%) (Auto) 65.9, Lymphocytes ( %) (Auto) 22.8, Monocytes (%) (Auto) 5.4, Eosinophils (%) (Auto) 5.0H, Basophils (%) (Auto) 0.8, Sodium Level 147H, Potassium Level 3.6, Chloride Level 117H, Carbon Dioxide Level 20L, Anion Gap 11, Blood Urea Nitrogen 66H, Creatinine 2.7H, Estimat Glomerular Filtration Rate , Glucose Level 206H, Calcium Level 9.3 Height (Feet): 5 Height (Inches): 4.00 Weight (Pounds): 120 Objective WDWN NAD clear breath sounds bilaterally without rhonchi or wheeze [id number] without MRG NABS nontender no HSM no CCE weak Nain Pendleton MD Apr 28, 2019 18:07
--- NOTE | 2019-04-28 19:06 | NUR ---
HAND-OFF: Report given to LISSETTE.
--- NOTE | 2019-04-28 19:31 | NUR ---
NURSE NOTES: Received patient in bed, A/O x 2, hard of hearing, on room air, no acute distress noted, VSS, afebrile, call light is within reach, bed is in low position, locked and alarm is on. Will continue to monitor for safety and comfort.
[2019-04-28] MEDS ORDERED: 1/2 NS 1000ml IV ONE (20:48)
[2019-04-28] MEDS ORDERED: Tubing IV Secondary IV ONE (20:48)
[2019-04-28] MEDS ORDERED: NS 275ml ONE (20:48)
[2019-04-29] VITALS (9 sets, daily range): BP systolic 133–202; BP diastolic 65–82
[2019-04-29] MEDS: HydrALAZINE 50mg tab ORAL SCH ×5 (00:17→22:58)
--- NOTE | 2019-04-29 01:24 | NUR ---
NURSE NOTES: Patient is noted with high blood pressure readings, 197/79 at 2000, 187/80 2200. 202/76 at midnight, was paged, spoke to Dr. Arce, he ordered clonidine 0.1 mg PO q 12 hours PRN.
--- NOTE | 2019-04-29 05:30 | Progress Note ---
DATE: 04/29/2019 CARDIOLOGY PROGRESS NOTE SUBJECTIVE: The patient is comfortable, no distress. Monitor, sinus. OBJECTIVE: VITAL SIGNS: Blood pressure of 144/76, pulse 79, and respirations 18. LUNGS: Clear. CARDIAC: Regular. Normal S1, S2. No murmur. ABDOMEN: Soft, nontender. No edema. LABORATORY DATA: White count 7.3, hemoglobin 10.5. Sodium 147, potassium 3.6, chloride 117, bicarb 20, BUN 66, and creatinine 2.7. IMPRESSION: 1. Hypertensive urgency, resolved. 2. hypertensive heart disease with improved blood pressure. 3. Dehydration and hypernatremia, resolving. 4. Urinary tract infection with sepsis and recovered shock. 5. Metabolic acidosis, resolved. 6. Acute on chronic renal failure, improved. PLAN: 1. Continue hypotonic IV fluid hydration. 2. Continue titrating of antihypertensives with caution. 3. Monitor volume status and cardiorenal parameters. 4. Antimicrobials per primary care physician. Rios Andre M.D. DR: SINA JOB#: [id number] CC:
[2019-04-29] MEDS: NovoLOG Insulin Flexpen SUBQ SCH ×4 (05:52→20:49)
[2019-04-29 07:00] LABS: BASOPHILS % (AUTO) 0.8 % (0.0-2.0); EOSINOPHILS % (AUTO) 5.5 % (0.0-3.0); HEMATOCRIT 34.9 % (37.0-47.0); HEMOGLOBIN 11.3 G/DL (12.0-16.0); LYMPHOCYTES % (AUTO) 22.4 % (20.0-45.0); MEAN CORPUSCULAR VOLUME 89 FL (80-99); MONOCYTES % (AUTO) 6.7 % (1.0-10.0); NEUTROPHILS % (AUTO) 64.5 % (45.0-75.0); PLATELET COUNT 149 K/UL (150-450); RED BLOOD COUNT 3.92 M/UL (4.20-5.40); RED CELL DISTRIBUTION WIDTH 14.1 % (11.6-14.8); WHITE BLOOD COUNT 5.8 K/UL (4.8-10.8)
--- NOTE | 2019-04-29 07:02 | NUR ---
HAND-OFF: Report given to Nadeen HANNA.
[2019-04-29 07:08] LABS: ANION GAP 14 mmol/L (5-15); BLOOD UREA NITROGEN 57 mg/dL (7-18); CALCIUM 9.4 MG/DL (8.5-10.1); CARBON DIOXIDE 18 MMOL/L (21-32); CHLORIDE 116 MMOL/L (98-107); CREATININE 2.4 MG/DL (0.55-1.30); SODIUM 148 MMOL/L (136-145)
--- NOTE | 2019-04-29 08:00 | NUR ---
NURSE NOTES: Patient opens eyes when name called and to touch,respiration are unlabored.Sawyer catheter is in place and draining clear light yellow urine.patient ate a little of her breakfast Bed alarm is on,call light within reach.
[2019-04-29] MEDS: Heparin 5000 units/ml inj SUBQ SCH ×2 (09:00→20:47)
[2019-04-29] MEDS: Labetalol 200mg tab ORAL SCH ×2 (09:38→20:46)
--- NOTE | 2019-04-29 09:58 | NUR ---
RD ASSESSMENT & RECOMMENDATIONS SEE CARE ACTIVITY FOR COMPLETE ASSESSMENT DAILY ESTIMATED NEEDS: Needs based on wound, DM, cardiac/ 54.5kg abw 25-30 kcals/kg 6299-9363 total kcals 1.25-1.5 g protein/kg 68-82 g total protein 25-30 mL/kg 8592-5368 total fluid mLs NUTRITION DIAGNOSIS: * Swallowing difficulty R/T dysphagia, h/o CVA as evidenced by pt on pureed moist texture diet. * Increased kcal/prot intake needs R/T wound healing as evidenced by admitted w/ stage 2 sacral wound. * Altered nutrition related lab values R/T fluid deficit, ARF, DM, clinical condition as evidenced by elev Na (156-> 148), elev BUN (105->57), elev creat (3.2->2.4), elev BG (589* ->177 206), elev BPs (208/100,202/86->improved). CURRENT DIET:REGULAR, pureed moist PO DIET RECOMMENDATIONS: LOW NA, CCHO LOW/ texture per [employer] ADDITIONAL RECOMMENDATIONS: * Calibrated bedscale wt for accurate CBW * Consider long acting insulin for improved BGs * Wound healing: add MVI x 1, Vit C 500mg QD, Mark 1pkt BID * Monitor lytes and renal fxn -> renal fxn improving at this time * CONSIDER IGE TEST FOR MILK ALLERGY: MILK listed on the allergy list. However, pt on 8oz milk + ice cream TID @ meals, HPN @ SNF * Add Glucerna 1 tetra brigida BID in b/w meals w/ continue variable PO intake
--- NOTE | 2019-04-29 13:32 | NUR ---
Social Service Note Patient accepted at [address] [facility] Nurse to call report prior to transport [phone]. Ambulance arranged with [facility] [phone]. SW left a message for patient's son [phone] and [phone]. SW notified charge nurse.
--- NOTE | 2019-04-29 13:34 | General Progress Note ---
Assessment/Plan Problem List: (1) CKD (chronic kidney disease) stage 3, GFR 30-59 ml/min ICD Codes: N18.3 - Chronic kidney disease, stage 3 (moderate) SNOMED: 990294865 (2) Diabetes 1.5, managed as type 2 ICD Codes: E13.9 - Other specified diabetes mellitus without complications SNOMED: 767129567 (3) Hypertensive urgency ICD Codes: I16.0 - Hypertensive urgency SNOMED: 697799011 (4) UTI (urinary tract infection) ICD Codes: N39.0 - Urinary tract infection, site not specified SNOMED: 41534697 Qualifiers: Qualified Codes: N39.0 - Urinary tract infection, site not specified Status: stable, progressing Assessment/Plan: bp bs control cbc bmp am transfer to [place] vs dc plan Subjective Constitutional: Reports: weakness Allergies: Coded Allergies: AMLODIPINE (Verified Allergy, Unknown, 04/25/19) CODEINE (Verified Allergy, Unknown, 04/25/19) LOVASTATIN (Verified Allergy, Unknown, 04/25/19) MILK (Verified Allergy, Unknown, 04/25/19) PIOGLITAZONE (Verified Allergy, Unknown, 04/25/19) SIMVASTATIN (Verified Allergy, Unknown, 04/25/19) Uncoded Allergies: NSAIDS (Allergy, Unknown, 04/25/19) OPIATES (Allergy, Unknown, 04/25/19) SHELLFISH-DERIVED PRODUCTS (Allergy, Unknown, 04/25/19) All Systems: reviewed and negative except above Subjective confused in bed Objective Last 24 Hour Vital Signs Date Time Temp Pulse Resp B/P (MAP) Pulse Ox O2 Delivery O2 Flow Rate FiO2 04/29/19 12:59 133/78 04/29/19 12:52 97.6 78 18 133/78 (96) 99 78 04/29/19 09:39 74 144/80 04/29/19 09:38 74 144/80 04/29/19 09:31 Room Air 04/29/19 09:30 74 144/80 (101) 04/29/19 08:00 97.4 67 16 149/78 (101) 96 67 04/29/19 06:42 176/80 (112) 04/29/19 05:41 169/78 04/29/19 04:07 97.0 78 20 169/65 (99) 78 04/29/19 01:42 198/87 04/29/19 00:39 98.0 74 18 202/82 (122) 74 04/29/19 00:17 202/76 04/28/19 21:18 162/87 (112) 04/28/19 20:15 78 191/77 04/28/19 20:00 97.0 78 18 191/77 (115) 04/28/19 17:17 144/76 04/28/19 16:00 98.1 79 18 144/76 (98) 94 Intake and Output 04/28/19 04/29/19 19:00 07:00 Intake Total 1615 ml Output Total 1100 ml 1600 ml Balance 515 ml -1600 ml Intake Oral 240 ml IV Total 1375 ml Output Urine Total 1100 ml 1600 ml # Voids 3 # Bowel Movements 4 Laboratory Tests 04/29/19 05:23: White Blood Count 5.8, Red Blood Count 3.92L, Hemoglobin 11.3L, Hematocrit 34.9L , Mean Corpuscular Volume 89, Mean Corpuscular Hemoglobin 28.8, Mean Corpuscular Hemoglobin Concent 32.3, Red Cell Distribution Width 14.1, Platelet Count 149L, Mean Platelet Volume 8.4, Neutrophils (%) (Auto) 64.5, Lymphocytes ( %) (Auto) 22.4, Monocytes (%) (Auto) 6.7, Eosinophils (%) (Auto) 5.5H, Basophils (%) (Auto) 0.8, Sodium Level 148H, Potassium Level 4.0, Chloride Level 116H, Carbon Dioxide Level 18L, Anion Gap 14, Blood Urea Nitrogen 57H, Creatinine 2.4H, Estimat Glomerular Filtration Rate , Glucose Level 177H, Calcium Level 9.4, Magnesium Level 1.8 Height (Feet): 5 Height (Inches): 4.00 Weight (Pounds): 120 General Appearance: lethargic EENT: normal ENT inspection Neck: normal alignment Cardiovascular: normal peripheral pulses, normal rate, regular rhythm Respiratory/Chest: chest wall non-tender, lungs clear, normal breath sounds Abdomen: normal bowel sounds, non tender, soft Extremities: normal inspection Edema: no edema noted Arm (L), no edema noted Arm (R), no edema noted Leg (L), no edema noted Leg (R), no edema noted Pedal (L), no edema noted Pedal (R), no edema noted Generalized Neurologic: motor weakness Skin: normal pigmentation, warm/dry Vel Patino DO Apr 29, 2019 13:34
[2019-04-29] MEDS: Cephalexin 250mg Cap ORAL SCH (15:04)
--- NOTE | 2019-04-29 15:27 | NUR ---
NURSE NOTES: Patient will be D/C to [facility].report given to Franko NEVILLE.
--- NOTE | 2019-04-29 18:08 | NUR ---
NURSE NOTES: Patient ready for discharge but blood pressure at this time is 193/95.[facility] is here but unable to take patient due to blood pressure.Will give BP meds as ordered.Will notify Doctor and place ambulance service on will call.
--- NOTE | 2019-04-29 19:09 | NUR ---
NURSE NOTES: Blood pressure now 179/89 heatrrate 80,will endorse to oncoming nurse regarding patient discharge .
--- NOTE | 2019-04-29 19:30 | NUR ---
NURSE NOTES: Noted patient in bed, awake, unable to make simple needs known. Respiration is even and unlabored. Skin is warm and dry to touch. No IV noted. Sawyer catheter noted. Ready for discharge but blood pressure is elevated, previous shift nurse gave hypertension medications earlier. Will reassess and follow up.
--- NOTE | 2019-04-29 19:45 | NUR ---
HAND-OFF: Report given to Keanu HANNA.
--- NOTE | 2019-04-29 20:45 | NUR ---
NURSE NOTES: patient blood pressure still elevated 181/81. Will give routine medications as ordered with PRN hypertension medication. Will reassess.
--- NOTE | 2019-04-29 22:24 | Pulmonology Progress Note ---
Assessment/Plan Assessment/Plan Pulmonary Progress Note Assessment/Plan: IMPRESSION hypertensive emergency acute on chronic renal failure acute on chronic encephalopathy hyperglycemia moderate protein calorie malnutrition hypernatremia UTI PLAN care noted hypotonic fluids IV antibiotics--> PO adequate tolerating diet transfer to SNF impression, plan, and exam edited and reviewed in detail care discussed with RN Subjective Allergies: Coded Allergies: AMLODIPINE (Verified Allergy, Unknown, 04/25/19) CODEINE (Verified Allergy, Unknown, 04/25/19) LOVASTATIN (Verified Allergy, Unknown, 04/25/19) MILK (Verified Allergy, Unknown, 04/25/19) PIOGLITAZONE (Verified Allergy, Unknown, 04/25/19) SIMVASTATIN (Verified Allergy, Unknown, 04/25/19) Uncoded Allergies: NSAIDS (Allergy, Unknown, 04/25/19) OPIATES (Allergy, Unknown, 04/25/19) SHELLFISH-DERIVED PRODUCTS (Allergy, Unknown, 04/25/19) Subjective comfortable d/w RN no acute issues Objective Vital Signs Noted Laboratory Tests 04/28/19 07:38: White Blood Count 7.3, Red Blood Count 3.62L, Hemoglobin 10.5L, Hematocrit 32.8L , Mean Corpuscular Volume 91, Mean Corpuscular Hemoglobin 29.1, Mean Corpuscular Hemoglobin Concent 32.1, Red Cell Distribution Width 14.2, Platelet Count 102L, Mean Platelet Volume 7.1, Neutrophils (%) (Auto) 65.9, Lymphocytes ( %) (Auto) 22.8, Monocytes (%) (Auto) 5.4, Eosinophils (%) (Auto) 5.0H, Basophils (%) (Auto) 0.8, Sodium Level 147H, Potassium Level 3.6, Chloride Level 117H, Carbon Dioxide Level 20L, Anion Gap 11, Blood Urea Nitrogen 66H, Creatinine 2.7H, Estimat Glomerular Filtration Rate , Glucose Level 206H, Calcium Level 9.3 Height (Feet): 5 Height (Inches): 4.00 Weight (Pounds): 120 Objective WDWN NAD clear breath sounds bilaterally without rhonchi or wheeze [id number] without MRG NABS nontender no HSM no CCE weak Subjective ROS Limited/Unobtainable: No Allergies: Coded Allergies: AMLODIPINE (Verified Allergy, Unknown, 04/25/19) CODEINE (Verified Allergy, Unknown, 04/25/19) LOVASTATIN (Verified Allergy, Unknown, 04/25/19) MILK (Verified Allergy, Unknown, 04/25/19) PIOGLITAZONE (Verified Allergy, Unknown, 04/25/19) SIMVASTATIN (Verified Allergy, Unknown, 04/25/19) Uncoded Allergies: NSAIDS (Allergy, Unknown, 04/25/19) OPIATES (Allergy, Unknown, 04/25/19) SHELLFISH-DERIVED PRODUCTS (Allergy, Unknown, 04/25/19) Objective Last 24 Hour Vital Signs Date Time Temp Pulse Resp B/P (MAP) Pulse Ox O2 Delivery O2 Flow Rate FiO2 04/29/19 20:50 181/81 04/29/19 20:46 86 181/81 04/29/19 20:00 98.0 86 20 181/81 (114) 94 04/29/19 19:03 179/89 04/29/19 16:00 97.1 78 19 140/70 (93) 97 04/29/19 12:59 133/78 04/29/19 12:52 97.6 78 18 133/78 (96) 99 78 04/29/19 09:39 74 144/80 04/29/19 09:38 74 144/80 04/29/19 09:31 Room Air 04/29/19 09:30 74 144/80 (101) 04/29/19 08:00 97.4 67 16 149/78 (101) 96 67 04/29/19 06:42 176/80 (112) 04/29/19 05:41 169/78 04/29/19 04:07 97.0 78 20 169/65 (99) 78 04/29/19 01:42 198/87 04/29/19 00:39 98.0 74 18 202/82 (122) 74 04/29/19 00:17 202/76 Intake and Output 04/28/19 04/29/19 18:59 06:59 Intake Total 1615 ml Output Total 1100 ml 1600 ml Balance 515 ml -1600 ml Intake Oral 240 ml IV Total 1375 ml Output Urine Total 1100 ml 1600 ml # Voids 3 # Bowel Movements 4 Laboratory Tests 04/29/19 05:23: White Blood Count 5.8, Red Blood Count 3.92L, Hemoglobin 11.3L, Hematocrit 34.9L , Mean Corpuscular Volume 89, Mean Corpuscular Hemoglobin 28.8, Mean Corpuscular Hemoglobin Concent 32.3, Red Cell Distribution Width 14.1, Platelet Count 149L, Mean Platelet Volume 8.4, Neutrophils (%) (Auto) 64.5, Lymphocytes ( %) (Auto) 22.4, Monocytes (%) (Auto) 6.7, Eosinophils (%) (Auto) 5.5H, Basophils (%) (Auto) 0.8, Sodium Level 148H, Potassium Level 4.0, Chloride Level 116H, Carbon Dioxide Level 18L, Anion Gap 14, Blood Urea Nitrogen 57H, Creatinine 2.4H, Estimat Glomerular Filtration Rate , Glucose Level 177H, Calcium Level 9.4, Magnesium Level 1.8 Current Medications Medications (Trade) Dose Ordered Sig/Ford Route PRN Reason Start Time Stop Time Status Last Admin Dose Admin Acetaminophen (Tylenol) 650 mg Q4H PRN ORAL Mild Pain/Temp > 100.5 04/28/19 02:15 05/25/19 22:14 Amlodipine Besylate (Norvasc) 10 mg DAILY ORAL 04/28/19 09:00 05/26/19 08:59 04/29/19 09:39 Cephalexin (Keflex) 250 mg DAILY@1500 ORAL 04/28/19 15:00 05/05/19 14:59 04/29/19 15:04 Clonidine HCl (Catapres Tab) 0.1 mg EVERY 12 HOURS PRN ORAL For High Blood Pressure 04/29/19 01:00 05/29/19 00:59 04/29/19 20:50 Dextrose (Dextrose 50%) 25 ml Q30M PRN IV Hypoglycemia 04/27/19 23:45 05/25/19 22:14 Dextrose (Dextrose 50%) 50 ml Q30M PRN IV Hypoglycemia 04/27/19 23:45 05/25/19 22:14 Heparin Sodium (Porcine) (Heparin 5000 units/ml) 5,000 units EVERY 12 HOURS SUBQ 04/28/19 09:00 05/26/19 08:59 Hydralazine HCl (Apresoline) 50 mg Q6HR ORAL 04/28/19 00:00 05/26/19 00:00 04/29/19 19:03 Hydralazine HCl (Apresoline) 50 mg Q6HR PRN ORAL SBP above 150 04/28/19 00:00 05/25/19 22:14 Insulin Aspart (NovoLOG) BEFORE MEALS AND HS SUBQ 04/28/19 06:30 05/26/19 06:29 04/29/19 20:49 Labetalol HCl (Normodyne) 300 mg Q12HR ORAL 04/28/19 09:00 05/26/19 08:59 04/29/19 20:46 Rios Arce MD Apr 29, 2019 22:24
--- NOTE | 2019-04-29 22:30 | NUR ---
NURSE NOTES: Called business continuity coordinator Dr. Arce, patient BP is still high, will hold Discharge for patient at the moment since ambulance will not take patient. Charge nurse made aware.
[2019-04-30] VITALS (7 sets, daily range): BP systolic 150–199; BP diastolic 66–82
[2019-04-30] MEDS: HydrALAZINE 50mg tab ORAL SCH ×2 (06:12→12:26)
[2019-04-30] MEDS: NovoLOG Insulin Flexpen SUBQ SCH ×2 (06:13→12:53)
--- NOTE | 2019-04-30 07:09 | NUR ---
NURSE NOTES: Called [facility] regarding patient roller picker, still on will call. Will inform charge nurse.
--- NOTE | 2019-04-30 07:28 | NUR ---
HAND-OFF: Report given to CYNDI Senior.
[2019-04-30 07:54] LABS: ANION GAP 10 mmol/L (5-15); BLOOD UREA NITROGEN 45 mg/dL (7-18); CALCIUM 9.2 MG/DL (8.5-10.1); CARBON DIOXIDE 23 MMOL/L (21-32); CHLORIDE 115 MMOL/L (98-107); CREATININE 2.4 MG/DL (0.55-1.30); POTASSIUM 3.8 MMOL/L (3.5-5.1); SODIUM 147 MMOL/L (136-145)
[2019-04-30 07:56] LABS: BASOPHILS % (AUTO) 1.3 % (0.0-2.0); EOSINOPHILS % (AUTO) 5.3 % (0.0-3.0); HEMATOCRIT 32.2 % (37.0-47.0); HEMOGLOBIN 10.5 G/DL (12.0-16.0); LYMPHOCYTES % (AUTO) 27.6 % (20.0-45.0); MEAN CORPUSCULAR VOLUME 89 FL (80-99); MONOCYTES % (AUTO) 7.5 % (1.0-10.0); NEUTROPHILS % (AUTO) 58.3 % (45.0-75.0); PLATELET COUNT 148 K/UL (150-450); RED BLOOD COUNT 3.62 M/UL (4.20-5.40); RED CELL DISTRIBUTION WIDTH 14.2 % (11.6-14.8); WHITE BLOOD COUNT 4.8 K/UL (4.8-10.8)
--- NOTE | 2019-04-30 08:13 | NUR ---
NURSE NOTES: Patient alert to name ,respirations are unlabored.Sawyer catheter is in place and draining clear yellow urine.patient breakfast at bed side will assist patient.Will monitor patient blood pressure.Per report patient danial be discharge to day once blood pressure stabilized.Bed alarm is on,call light within reach.
[2019-04-30] MEDS: Heparin 5000 units/ml inj SUBQ SCH (09:00)
[2019-04-30] MEDS: Labetalol 200mg tab ORAL SCH (09:34)
--- NOTE | 2019-04-30 11:14 | NUR ---
*-* INSURANCE *-* ALL CLINICALS AND REVIEW HAVE BEEN FAXED TO: [facility] T:[phone] F:[phone]
--- NOTE | 2019-04-30 11:55 | NUR ---
PT NOTE Received MD order for PT evaluation. This therapist spoke with nursing staff at SNF regarding patient's level of function prior to hospitalization. Patient is bedbound, transfers to michelle-chair with the use of a mechanical lift. Skilled inpatient PT intervention not indicated as patient is at baseline level of function, Nadeen HANNA notified.
--- NOTE | 2019-04-30 12:21 | General Progress Note ---
Assessment/Plan Problem List: (1) CKD (chronic kidney disease) stage 3, GFR 30-59 ml/min ICD Codes: N18.3 - Chronic kidney disease, stage 3 (moderate) SNOMED: 823470470 (2) Diabetes 1.5, managed as type 2 ICD Codes: E13.9 - Other specified diabetes mellitus without complications SNOMED: 223267336 (3) Hypertensive urgency ICD Codes: I16.0 - Hypertensive urgency SNOMED: 826232233 (4) UTI (urinary tract infection) ICD Codes: N39.0 - Urinary tract infection, site not specified SNOMED: 23864431 Qualifiers: Qualified Codes: N39.0 - Urinary tract infection, site not specified Status: stable, progressing Assessment/Plan: bp bs control cbc bmp am transfer to [place] vs dc plan Subjective Constitutional: Reports: weakness Allergies: Coded Allergies: AMLODIPINE (Verified Allergy, Unknown, 04/25/19) CODEINE (Verified Allergy, Unknown, 04/25/19) LOVASTATIN (Verified Allergy, Unknown, 04/25/19) MILK (Verified Allergy, Unknown, 04/25/19) PIOGLITAZONE (Verified Allergy, Unknown, 04/25/19) SIMVASTATIN (Verified Allergy, Unknown, 04/25/19) Uncoded Allergies: NSAIDS (Allergy, Unknown, 04/25/19) OPIATES (Allergy, Unknown, 04/25/19) SHELLFISH-DERIVED PRODUCTS (Allergy, Unknown, 04/25/19) All Systems: reviewed and negative except above Subjective confused in bed Objective Last 24 Hour Vital Signs Date Time Temp Pulse Resp B/P (MAP) Pulse Ox O2 Delivery O2 Flow Rate FiO2 04/30/19 12:10 97.5 71 18 150/82 (104) 96 04/30/19 09:34 70 199/82 04/30/19 09:34 7 199/82 04/30/19 09:34 70 199/82 (121) 04/30/19 09:00 Room Air 04/30/19 08:00 97.7 72 18 155/72 (99) 95 04/30/19 06:30 165/71 (102) 04/30/19 06:12 180/73 04/30/19 05:27 184/70 04/30/19 04:00 98.1 83 20 184/70 (108) 96 04/30/19 00:00 98.7 80 20 175/66 (102) 96 04/29/19 22:58 184/67 04/29/19 22:38 184/67 (106) 04/29/19 20:50 181/81 04/29/19 20:46 86 181/81 04/29/19 20:00 98.0 86 20 181/81 (114) 94 04/29/19 19:03 179/89 04/29/19 16:00 97.1 78 19 140/70 (93) 97 04/29/19 12:59 133/78 04/29/19 12:52 97.6 78 18 133/78 (96) 99 78 Intake and Output 04/29/19 04/30/19 19:00 07:00 Intake Total 640 ml 500 ml Output Total 450 ml 775 ml Balance 190 ml -275 ml Intake Oral 640 ml 500 ml Output Urine Total 450 ml 775 ml # Bowel Movements 2 Laboratory Tests 04/30/19 07:20: White Blood Count 4.8, Red Blood Count 3.62L, Hemoglobin 10.5L, Hematocrit 32.2L , Mean Corpuscular Volume 89, Mean Corpuscular Hemoglobin 29.1, Mean Corpuscular Hemoglobin Concent 32.7, Red Cell Distribution Width 14.2, Platelet Count 148L, Mean Platelet Volume 7.7, Neutrophils (%) (Auto) 58.3, Lymphocytes ( %) (Auto) 27.6, Monocytes (%) (Auto) 7.5, Eosinophils (%) (Auto) 5.3H, Basophils (%) (Auto) 1.3, Sodium Level 147H, Potassium Level 3.8, Chloride Level 115H, Carbon Dioxide Level 23, Anion Gap 10, Blood Urea Nitrogen 45H, Creatinine 2.4H, Estimat Glomerular Filtration Rate , Glucose Level 168H, Calcium Level 9.2 Height (Feet): 5 Height (Inches): 4.00 Weight (Pounds): 120 General Appearance: lethargic, confused EENT: normal ENT inspection Neck: normal alignment Cardiovascular: normal peripheral pulses, normal rate, regular rhythm Respiratory/Chest: chest wall non-tender, lungs clear, normal breath sounds Abdomen: normal bowel sounds, non tender, soft Extremities: normal inspection Edema: no edema noted Arm (L), no edema noted Arm (R), no edema noted Leg (L), no edema noted Leg (R), no edema noted Pedal (L), no edema noted Pedal (R), no edema noted Generalized Neurologic: motor weakness Skin: normal pigmentation, warm/dry Vel Patino DO Apr 30, 2019 12:21
--- NOTE | 2019-04-30 13:30 | NUR ---
NURSE NOTES: DR Arce aware of patient blood pressure of 175/66,DR Arce gave order to give clonidine 0.1mg as ordered and patient can be discharge back to [facility].Patient blood preesure taken again,BP now 168/68 heart rate 75.
--- NOTE | 2019-04-30 14:23 | NUR ---
NURSE NOTES: Patient blood pressure 150/58 heart rate 74,patient discharge [facility],IV removed.Sawyer catheter remains in place.per MD order.Personal belongings given to [facility] personnel.Report given to Reva HANNA at [facility].
--- NOTE | 2019-04-30 14:38 | Surgery Progress Note ---
Surgery Progress Note Subjective Additional Comments no acute events. stable improving Objective Last 24 Hour Vital Signs Date Time Temp Pulse Resp B/P (MAP) Pulse Ox O2 Delivery O2 Flow Rate FiO2 04/30/19 13:28 168/68 04/30/19 12:26 150/82 04/30/19 12:10 97.5 71 18 150/82 (104) 96 04/30/19 09:34 70 199/82 04/30/19 09:34 7 199/82 04/30/19 09:34 70 199/82 (121) 04/30/19 09:00 Room Air 04/30/19 08:00 97.7 72 18 155/72 (99) 95 04/30/19 06:30 165/71 (102) 04/30/19 06:12 180/73 04/30/19 05:27 184/70 04/30/19 04:00 98.1 83 20 184/70 (108) 96 04/30/19 00:00 98.7 80 20 175/66 (102) 96 04/29/19 22:58 184/67 04/29/19 22:38 184/67 (106) 04/29/19 20:50 181/81 04/29/19 20:46 86 181/81 04/29/19 20:00 98.0 86 20 181/81 (114) 94 04/29/19 19:03 179/89 04/29/19 16:00 97.1 78 19 140/70 (93) 97 I&O Intake and Output 04/29/19 04/30/19 19:00 07:00 Intake Total 640 ml 500 ml Output Total 450 ml 775 ml Balance 190 ml -275 ml Intake Oral 640 ml 500 ml Output Urine Total 450 ml 775 ml # Bowel Movements 2 Dressing: saturated Wound: clean Cardiovascular: RSR Respiratory: clear Abdomen: soft, flat, non-tender Extremities: no tenderness, no cyanosis Laboratory Tests Test 04/30/19 07:20 White Blood Count 4.8 K/UL (4.8-10.8) Red Blood Count 3.62 M/UL (4.20-5.40) L Hemoglobin 10.5 G/DL (12.0-16.0) L Hematocrit 32.2 % (37.0-47.0) L Mean Corpuscular Volume 89 FL (80-99) Mean Corpuscular Hemoglobin 29.1 PG (27.0-31.0) Mean Corpuscular Hemoglobin Concent 32.7 G/DL (32.0-36.0) Red Cell Distribution Width 14.2 % (11.6-14.8) Platelet Count 148 K/UL (150-450) L Mean Platelet Volume 7.7 FL (6.5-10.1) Neutrophils (%) (Auto) 58.3 % (45.0-75.0) Lymphocytes (%) (Auto) 27.6 % (20.0-45.0) Monocytes (%) (Auto) 7.5 % (1.0-10.0) Eosinophils (%) (Auto) 5.3 % (0.0-3.0) H Basophils (%) (Auto) 1.3 % (0.0-2.0) Sodium Level 147 MMOL/L (136-145) H Potassium Level 3.8 MMOL/L (3.5-5.1) Chloride Level 115 MMOL/L (98-107) H Carbon Dioxide Level 23 MMOL/L (21-32) Anion Gap 10 mmol/L (5-15) Blood Urea Nitrogen 45 mg/dL (7-18) H Creatinine 2.4 MG/DL (0.55-1.30) H Estimat Glomerular Filtration Rate mL/min (>60) Glucose Level 168 MG/DL (74-106) H Calcium Level 9.2 MG/DL (8.5-10.1) Plan Problems: (1) Decubitus ulcer of sacral region, stage 4 Assessment & Plan: PT presented on admission with full thickness pressure injury. Base of wound with 100% mixed eschar /slough (+) epibole along edges (L) 1cm x (W)1.4cm. No odor or exudate noted. Hyperpigmentation periwound. Both heels dry and callused . Stable dry eschar R heel. Periwound callused without erythema Non-tender when palpated. Tx.Plan: Cleanse sacral wound with Saline. Apply Therahoney. Apply Moisture Barrier periwound. Cover with Optifoam drsg. Change every 3 days and prn. Apply Cavilon Skin Barrier to both heels. Cover each heel with Optifoam drsg. Change every 3 days and prn. Reposition at least every 2hours or as tolerated. APM/ANDRE mattress. Off-load heels with pillow. 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 * Altered nutrition related lab values R/T fluid deficit, ARF, DM, clinical condition as evidenced by elev Na (156), elev BUN (105), elev creat (3.2), elev BG (589* ->243), elev BPs (208/100, 202/86). CURRENT DIET:NPO PO DIET RECOMMENDATIONS: LOW NA, CCHO LOW/ texture per GEOPHYSICAL PROSPECTING SURVEYOR ADDITIONAL RECOMMENDATIONS: * Calibrated bedscale wt for accurate CBW * GEOPHYSICAL PROSPECTING SURVEYOR eval for appropriate texture * Consider long acting insulin for improved BGs * Monitor lytes and renal fxn * CONSIDER IGE TEST FOR MILK ALLERGY: MILK listed on the allergy list. However, pt on 8oz milk + ice cream TID @ meals, HPN @ SNF * Wound healing: add MVI x 1, Vit C 500mg QD, Mark 1pkt BID Julian Muse Apr 30, 2019 14:38
--- NOTE | 2019-05-01 04:15 | Progress Note ---
DATE: 04/29/2019 CARDIOLOGY PROGRESS NOTE Late entry 04/29/2019. SUBJECTIVE: The patient remains confused. No respiratory distress. OBJECTIVE: VITAL SIGNS: Blood pressure is labile 133/78 to 176/80, heart rate 67 to 78, respiratory rate 16 to 20, and afebrile. LUNGS: Clear. CARDIAC: Regular. Normal S1 and S2 with a fourth heart sound. ABDOMEN: Soft. EXTREMITIES: Without edema. IMPRESSION: 1. Resolved hypertensive urgency, improving hypertension overall with underlying hypertensive heart disease, rehydrated, recovered shock due to urinary tract infection and sepsis. 2. Resolved metabolic acidosis. 3. Acute renal failure. PLAN: 1. Adjust IV fluids. 2. Avoid tight blood pressure control. 3. Antimicrobials per Infectious Disease labor relations consultant. 4. Titrate antihypertensives as clinical condition warrants. Rios Andre M.D. DR: DAVON JOB#: [id number] CC:
--- NOTE | 2019-05-01 04:15 | Progress Note ---
DATE: 04/30/2019 SUBJECTIVE: The patient is without any distress, but remains confused. OBJECTIVE: VITAL SIGNS: Blood pressure remains labile up to 199/82, heart rate 70, and respiratory rate 18. LUNGS: Clear. CARDIAC: Regular. ABDOMEN: Soft. EXTREMITIES: No edema. IMPRESSION: Tenuous, not stable for discharge, but able to complete recovery at [facility]. Needs further titration of antihypertensives, which has been initiated in addition to completion of antimicrobials, titration of diabetic regimen and adjustment of volume status with IV fluids. Rios Andre M.D. DR: JULIAN JOB#: [id number] CC:
--- NOTE | 2019-05-03 10:11 | Discharge Summary ---
Discharge Summary Discharge Summary _ DATE OF ADMISSION: April 25, 2019 DATE OF DISCHARGE: April 30, 2019 DISCHARGED BY: Dr. Pendleton REASON FOR ADMISSION: 83 years old female, resident of [facility], brought to the hospital due to abnormal vital signs and hyperglycemia. Upon initial evaluation in the ED blood pressure 202/86. Patient was tachycardic. Laboratory work-up revealed no leukocytosis , hemoglobin 12.7, hematocrit 38.7. Sodium 156. BUN 112, creatinine 4.3. Glucose 589. Lactic acid 3.5. Troponin - 0.066. Pro BNP 4844. EKG revealed sinus tachycardia, no acute ischemic changes. Albumin 3.2 Stable LFT. Chest x-ray demonstrated no acute cardiopulmonary pathology, but showed mild right perihilar atelectasis. In ED patient received IV fluid bolus with improvement in heart rate. Pain management was addressed. Insulin given . Patient received Ativan for agitation. Repeated lactic acid showed improvement. Urinalysis revealed evidence of pyuria and bacteria. Patient received hydralazine for severely elevated blood pressure with some improvement. Repeated glucose was still high. Insulin was repeated . Per [place] patient was too complex and ill to be transferred . Patient subsequently admitted to telemetry floor for further management with diagnosis elevated troponin renal failure UTI hypertensive urgency hyponatremia and possible sepsis. CONSULTANTS: swimming pool service technician Dr. Andre pantry chef Dr. De Los Santos surgery Dr. Muse internal medicine Dr Patino [facility] COURSE: Patient admitted to telemetry floor. Patient continued on hypotonic IV fluids and empiric antibiotics. Serial troponin trending. Second troponin down to 0.061. Troponin levels flat , insignificant, probably due to acute renal failure. Echocardiogram revealed preserved ejection fraction of 65% with severe left ventricular hypertrophy. No evidence of wall motion abnormality. Right ventricular systolic pressure of 19. Hypertensive regimen was titrated as per cardiology recommendation with multiply antihypertensive medications, including calcium channel nicola, labetalol, clonidine, and hydralazine as needed. Blood pressure overall improved . Patient had underlying hypertensive heart disease. DVT prophylaxis provided. Volumes were closely monitored.- Blood cultures were negative. Urine culture revealed E. coli. Antibiotic regimen was optimized based on sensitivity. Patient completed antibiotic while in the hospital. No fevers, no leukocytosis. Manager Transplant followed. Renal ultrasound demonstrated medical renal disease. Renal parameters and electrolytes were closely monitored. Electrolytes corrected as needed, and nephrotoxins were avoided. Per pantry chef , acute renal failure was likely vasomotor, secondary to volume depletion and free water deficit. Hypotonic saline was continued. Manager Transplant recommended avoid contrast and nonsteroid anti-inflammatory drugs and watch volumes closely. Prior to discharge BUN from 112 down to 45, creatinine from 4.3 down to 2.4. Sodium 147. Chloride 115. Surgeon followed-up for sacral decubitus ulcer stage IV, present on admission. Wound care provided as per surgeon recommendation. Heels were offloaded with pillow. Continue wound care at the facility. Blood sugar was managed with sliding scale of insulin. Blood sugar 168 prior to discharge. Supportive care provided. Bowel regimen instituted. Protein supplements implemented in plan of care as per registered dietitian recommendation. Patient clinically stabilized and was ready for transfer back to [facility] for continuation of care. FINAL DIAGNOSES: Sepsis UTI Hypertensive urgency-resolved with underlying hypertensive heart disease Diabetes mellitus with hyperglycemia Sacral decubitus ulcer stage IV , present on admission Acute renal failure likely due to dehydration on chronic kidney disease stage III Severe dehydration with hypernatremia and hyperchloremia Metabolic encephalopathy, acute on chronic Metabolic acidosis -resolved Moderate protein calorie malnutrition DISCHARGE MEDICATIONS: See Medication Reconciliation list. DISCHARGE INSTRUCTIONS: Patient was discharged to the [facility]. Follow up with medical doctor at the facility. I have been assigned to dictate discharge summary for this account. I was not involved in the patient's management. Julee Yee NP May 03, 2019 10:11
== END 2019-04-30 15:05 | DRG 871 ==
LOC: EDBD 15:48 → EMR 16:44 → EDBEDREQSVC 20:31 → 2W 20:50 → EDBEDREQ 21:32 → 2W 23:44 → 4E 04-27 23:25
DX: A41.9 Sepsis, unspecified organism (principal); L89.154 Pressure ulcer of sacral region, stage 4; G93.41 Metabolic encephalopathy; I16.1 Hypertensive emergency; E87.0 Hyperosmolality and hypernatremia; N39.0 Urinary tract infection, site not specified; N17.9 Acute kidney failure, unspecified; E44.0 Moderate protein-calorie malnutrition; I12.9 Hypertensive chronic kidney disease with stage 1 through stage 4 chronic kidney disease, or unspecified chronic kidney disease; N18.3 Chronic kidney disease, stage 3 (moderate); E86.0 Dehydration; E13.65 Other specified diabetes mellitus with hyperglycemia; E87.8 Other disorders of electrolyte and fluid balance, not elsewhere classified; B96.20 Unspecified Escherichia coli [E. coli] as the cause of diseases classified elsewhere; E78.5 Hyperlipidemia, unspecified; Z88.8 Allergy status to other drugs, medicaments and biological substances; Z88.6 Allergy status to analgesic agent; Z91.011 Allergy to milk products; Z91.013 Allergy to seafood; Z79.4 Long term (current) use of insulin; Z66 Do not resuscitate; Z68.20 Body mass index [BMI] 20.0-20.9, adult
CPT/HCPCS: 36415; 71045; 76770; 80048; 80053; 81003; 82044; 82550; 82570; 82962; 83605; 83690; 83735; 83880; 84100; 84300; 84443; 84484; 85025; 85610; 85730; 87040; 87081; 87086; 87181; 93005; 93306; 96361; 96365; 96368; 96375; 96376; 99285; J1815

== ENCOUNTER 2020-06-02 22:35 | Inpatient (IN) | payer MEDICARE, MEDICAID ==
[~2020-06-02] VITALS: Ht 157.5 cm; Wt 45.8 kg
[~2020-06-02 22:35] MED LIST: ACETAMINOPHEN325 M1 ORAL; ACETAMINOPHEN650 M2 ORAL; APRESOLINE100 MG ORAL; ASPIRIN81 M3 PO; CALCITONIN-SAL3.7 ML NS; CLONIDINE1 EAC1 TD; DOCUSATE SODIU100 M2 RECTAL; DOCUSATE SODIU250 MG ORAL; DULCOLAX10 MG RC; FERROUS SULFAT325 M2 ORAL; HUMULIN R100 UNIT/1 SUBQ; ISOSORBIDE DINI20 M2 PO; LANTUS SOL100 UNIT/1 SUBQ; LATANOPROST 0.7.5 ML OP; LATANOPROST2.5 ML BOTH EYES; MELATONIN1 MG PO; MINERAL OIL EN133 ML RC; MIRTAZAPINE15 M3 ORAL; MOTRIN IB200 MG ORAL; MULTIPLE VITAM1 EAC6 PO; NEPHROVITE1 TAB ORAL; NIFEDIPINE ER90 M2 ORAL; NORMODYNE300 MG ORAL; PROCRIT3000 UNIT/ SUBQ; SENNA8.6 M2 PO; SIMBRINZA 1%-0.28 ML OP; SORBITOL 70%30 ML ORAL; TYLENOL325 MG ORAL; VITAMIN B-12100 MCG ORAL; VITAMIN B-12500 MCG ORAL; XOPENEX0.63 MG/3 HHN; ZOFRAN4 M1 ORAL
--- NOTE | 2020-06-02 22:45 | Emergency Room Report ---
History of Present Illness General Chief Complaint: Generalized Weakness Source: Medical Record, EMS Present Illness HPI This is an 84-year-old female from [facility]. She has a history of hypertension, diabetes, dementia. She also tested positive for COVID on May 04. She presents with chief complaint of weakness, lethargy and vomiting. Onset today. No reported fever or chills. No cough or congestion. Vomiting is bilious in nature. Decreased appetite. Decreased mentation per EMS. History is through EMS and [facility] note. Patient unable to give a history because of her condition. 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 COVID-19 Screening: Positive COVID-19 COVID-19 Testing Source: 05/04/20 Patient History Past Medical History: see triage record, old chart reviewed, DM, HTN, CAD Past Surgical History: other Pertinent Family History: none Social History: Denies: smoking Last Menstrual Period: n/a Now: No Immunizations: other Reviewed Nursing Documentation: PMH: Agreed; PSxH: Agreed Nursing Documentation-PMH Past Medical History: No History, Except For Hx Cardiac Problems: Yes Hx Hypertension: Yes Hx Diabetes: Yes Hx Cancer: No Hx Gastrointestinal Problems: No Hx Neurological Problems: No Review of Systems Constitutional: Reports: malaise, weakness Eye: Denies: eye pain, blurred vision ENT: Denies: ear pain, nose congestion, throat swelling Respiratory: Denies: cough, shortness of breath Cardiovascular: Denies: chest pain, palpitations Gastrointestinal: Reports: nausea, vomiting; Denies: abdominal pain, diarrhea Musculoskeletal: Denies: back pain, joint pain Skin: Denies: rash Neurological: Denies: headache, numbness Endocrine: Denies: increased thirst, increased urine Hematologic/Lymphatic: Denies: easy bruising All Other Systems: negative except mentioned in HPI Physical Exam Vital Signs Date Time Temp Pulse Resp B/P (MAP) Pulse Ox O2 Delivery O2 Flow Rate FiO2 06/02/20 22:38 98.2 65 18 162/36 (78) 98 Room Air Vitals with high blood pressure Sp02 EP Interpretation: reviewed, normal General Appearance: alert, mild distress, Chronically Ill Head: normocephalic, atraumatic Eyes: bilateral eye PERRL, bilateral eye EOMI ENT: hearing grossly normal, normal pharynx Neck: full range of motion, supple, no meningismus Respiratory: chest non-tender, lungs clear, normal breath sounds Cardiovascular #1: regular rate, rhythm, no murmur Gastrointestinal: normal bowel sounds, non tender, no mass, no organomegaly, no bruit, non-distended Musculoskeletal: back normal, normal range of motion Neurologic: grossly normal Psychiatric: mood/affect normal Procedures Critical Care Time Critical Care Time Critical care is mandated in this patient who presented with acute renal failure with hyperkalemia. Patient require my urgent intervention to attenuate the risks of metabolic collapse which may lead to cardiovascular collapse and . Critical care time is 35 minutes excluding any reportable procedure. Critical care time included evaluation, multiple reevaluation, looking at old charts, interpreting laboratory and diagnostic data, discussing case with patient and family and consultants, and charting. Medical Decision Making Diagnostic Impression: Primary Impression: Acute on chronic renal failure Qualified Codes: N17.9 - Acute kidney failure, unspecified; N18.5 - Chronic kidney disease, stage 5 Additional Impressions: Hyperkalemia Severe dehydration Anemia Qualified Codes: D64.9 - Anemia, unspecified Pyelonephritis Metabolic acidosis Acute metabolic encephalopathy Hypertension Qualified Codes: I10 - Essential (primary) hypertension Fecal impaction Anasarca ER Course Patient presents with vomiting and altered mental status. She has acute on chronic renal failure with severe metabolic acidosis. Hyperkalemia treated. She does have a urinary tract infection/pyelonephritis. She grew out E. coli in the past. Rocephin given here. EKG showed no evidence of any pneumonia. Prognosis poor. I discussed the case with Dr. Galarza at [facility]. #[phone]. Patient is too sick for transfer. Will admit here. I contacted Dr. Pendleton for admission. EKG Diagnostic Results Rate: normal Rhythm: NSR ST Segments: other - Incomplete left bundle branch block. Rhythm Strip Diag. Results EP Interpretation: yes Rate: 65 Rhythm: NSR, no PVC's Chest X-Ray Diagnostic Results Chest X-Ray Diagnostic Results : Chest X-Ray Ordered: Yes # of Views/Limited/Complete: 1 View Indication: Shortness of Breath EP Interpretation: Yes Interpretation: no consolidation, no effusion, no pneumothorax, other - Elevated right hemidiaphragm Impression: No acute disease Electronically Signed by: Herminio Givens MD CT/MRI/US Diagnostic Results CT/MRI/US Diagnostic Results : Imaging Test Ordered: CT abdomen and pelvis Impression Read by radiologist. Distention of the rectal sigmoid with stool worsen for fecal impaction anasarca. Cardiomegaly. Gastric distention. Nonspecific stranding about the perinephric space. Last Vital Signs Date Time Temp Pulse Resp B/P (MAP) Pulse Ox O2 Delivery O2 Flow Rate FiO2 06/02/20 22:38 98.2 65 18 162/36 (78) 98 Room Air Status: improved Disposition: ADMITTED INPATIENT Condition: Critical Herminio Givens MD Jun 02, 2020 22:45
[2020-06-02] MEDS ORDERED: NEPHROVITE1 TAB ORAL (22:58)
[2020-06-02] MEDS ORDERED: VITAMIN D3125 MCG PO (22:58)
[2020-06-02] MEDS ORDERED: VITAMIN C250 MG ORAL (22:58)
[2020-06-02 23:02] VITALS: BP 162/36
--- NOTE | 2020-06-02 23:07 | NUR ---
Nurse Note: Pt brought in by ambulance from [facility] c/o increasing letheragy, n/v since AM. Pt is baseline alert and oriented times 0; pt responds to pain, contracted on LT arm. Per EMS, pt is more lethergic, weak, failure to thrive.
--- NOTE | 2020-06-02 23:28 | Diagnostic Imaging Report ---
EXAM: XR Chest, 1 View CLINICAL HISTORY: ABD PAIN TECHNIQUE: Frontal view of the chest. COMPARISON: 04/25/2019. FINDINGS: Lungs: No consolidative change. Pleural space: Unremarkable. No pneumothorax. Heart: Cardiomediastinal silhouette is unremarkable. Mediastinum: See above. Bones/joints: Osteopenia. Vasculature: Atherosclerotic disease of the thoracic aorta. Upper abdomen: There is elevation of the right hemidiaphragm. IMPRESSION: 1. Mild cardiomegaly peered 2. Elevation of the right hemidiaphragm. 3. Osteopenia.
[2020-06-02 23:58] LABS: APPEARANCE,URINE TURBID; BILIRUBIN, URINE NEGATIVE (NEGATIVE); GLUCOSE, URINE (UA) NEGATIVE (NEGATIVE); KETONES,URINE NEGATIVE (NEGATIVE); LEUKOCYTE ESTERASE ,URINE 3+ (NEGATIVE); NITRITE,URINE NEGATIVE (NEGATIVE); PH,URINE 7 (4.5-8.0); PROTEIN,URINE 4+ (NEGATIVE); UROBILINOGEN,URINE NORMAL MG/DL (0.0-1.0)
[2020-06-03 00:11] LABS: HEMATOCRIT 16.8 % (37.0-47.0); MEAN CORPUSCULAR VOLUME 100 FL (80-99); PLATELET COUNT 257 K/UL (150-450); RED BLOOD COUNT 1.67 M/UL (4.20-5.40); RED CELL DISTRIBUTION WIDTH 16.6 % (11.6-14.8); WHITE BLOOD COUNT 9.6 K/UL (4.8-10.8)
[2020-06-03 00:14] LABS: COLOR,URINE PALE YELLOW
[2020-06-03 00:15] LABS: ALANINE AMINOTRANSFERASE 8 U/L (12-78); ALBUMIN 2.9 G/DL (3.4-5.0); ALBUMIN/GLOBULIN RATIO 0.8 (1.0-2.7); ALKALINE PHOSPHATASE 55 U/L (46-116); ANION GAP 26 mmol/L (5-15); ASPARTATE AMINO TRANSFERASE 19 U/L (15-37); BILIRUBIN,TOTAL 0.4 MG/DL (0.2-1.0); BLOOD UREA NITROGEN 299 mg/dL (7-18); CALCIUM 10.2 MG/DL (8.5-10.1); CHLORIDE 120 MMOL/L (98-107); CREATININE 14.9 MG/DL (0.55-1.30); SODIUM 154 MMOL/L (136-145)
--- NOTE | 2020-06-03 00:16 | NUR ---
Nurse Note: All orders completed per ERMD orders. CT abd/pelvis taken; awaiting results. Pt remains a&ox0, HR mid 60s; VSS. Pt is yelling; pt responds to deep stimulation. Sawyer cath in place. IV estbalished, infusing fluids. Upon further inspection, skin breakdown noted on sacral. Swabs sent to lab. All safety measures met; will continue to montior. Addendum: 06/03/20 at 0614 by [email or web address] Nurse Note: no camera; unable to take pictures.
[2020-06-03 00:19] VITALS: BP 152/43
[2020-06-03 00:22] LABS: CARBON DIOXIDE 8 MMOL/L (21-32); POTASSIUM 8.6 MMOL/L (3.5-5.1)
[2020-06-03 00:23] LABS: HEMOGLOBIN 5.1 G/DL (12.0-16.0)
[2020-06-03] MEDS ORDERED: Insulin Human Regular 100units/ml 3ml IV ONE ×2 (00:30→03:15)
[2020-06-03] MEDS ORDERED: cefTRIAXone 1 GM in NS 55 ML IVPB ONE (00:30)
[2020-06-03] MEDS ORDERED: Calcium Gluconate 1gm/10ml vial IVP ONE (00:30)
[2020-06-03] MEDS ORDERED: Sodium Bicarbonate 50ml Carp IV ONE ×2 (00:30→03:15)
--- NOTE | 2020-06-03 00:31 | Diagnostic Imaging Report ---
EXAM: CT Abdomen and Pelvis Without Intravenous Contrast CLINICAL HISTORY: ABD PAIN TECHNIQUE: Axial computed tomography images of the abdomen and pelvis without intravenous contrast. CTDI is 3.5 mGy and DLP is 178.10 mGy-cm. One or more of the following dose reduction techniques were used: automated exposure control, adjustment of the mA and/or kV according to patient size, use of iterative reconstruction technique. COMPARISON: 04/26/2019. FINDINGS: Limitations: Limited evaluation due to motion artifact. Lung bases: Patchy airspace disease at the lung bases presumably related to atelectasis. Etiology such as Covid-19 pneumonia cannot be entirely excluded. Heart: Cardiomegaly. ABDOMEN: Liver: Evaluation of the viscera is limited due to lack of oral and intravenous contrast administration per grossly, the liver is normal in contour. Gallbladder and bile ducts: The gallbladder is unremarkable. No calcified stones. No ductal dilation. Pancreas: The head, body, tail of the pancreas are unremarkable. No ductal dilation. Spleen: Punctate calcifications in the spleen suggestive of a previous great low-risk disease. Adrenals: 1.8 cm probable right adrenal adenoma. No follow-up is advised. 1 centimeter probable left adrenal abnormal. No follow-up is advised. Kidneys and ureters: Subcentimeter simple renal cyst bilaterally. Stranding about the perinephric spaces bilaterally. Clinical correlation is advised. No obstructing stones. No hydronephrosis. Stomach and bowel: The stomach is fluid-filled and mildly distended. Apparent wall thickening of the gastric antrum. Possibility of gastritis should be considered. Moderate quantity of stool throughout the colon. Diverticulosis without diverticulitis. The rectosigmoid is distended with stool measuring 9 x 6 x 7 cm raising concern for fecal impaction. Diffuse wall thickening of the rectosigmoid. PELVIS: Appendix: The appendix is seen on series 3 image 102 and is unremarkable. Bladder: Sawyer catheter in place with under distention of the bladder. No stones. Reproductive: Unremarkable as visualized. ABDOMEN and PELVIS: Intraperitoneal space: Unremarkable. No free air. No significant fluid collection. Bones/joints: Moderate to severe degenerative disc disease of the thoracolumbar spine. Moderate osteoarthritic changes about the sacroiliac joints. There is grade 1 anterolisthesis of L4 upon L5 vertebral body. There is grade 1 anterolisthesis of L3 upon L4 vertebral body appeared Anterior wedging of the L2 vertebral body of indeterminate age. Sacrum and coccyx are unremarkable. Gentle levoscoliosis of the thoracolumbar spine. Extensive arthroscopic disease of the major branches of the abdominal aorta. No dislocation. Soft tissues: Moderate to severe anasarca. Ischiorectal fat is clean. Vasculature: Atherosclerotic disease of the abdominal aorta. Lymph nodes: No pelvic or inguinal lymphadenopathy. IMPRESSION: 1. Distention of the rectosigmoid with stool worrisome for fecal impaction. 2. Anasarca. 3. Cardiomegaly per 4. ASCVD. 5. Gastric distention with fluid within the stomach. 6. Apparent wall thickening of the gastric antrum. Clinical correlation is advised. Findings are suggestive of gastritis. 7. Probable bilateral adrenal adenomas. No follow-up is advised. 8. Nonspecific stranding about the perinephric space. 9. No evidence of bowel obstruction. 10. Appendix is unremarkable. 11. Diverticulosis without diverticulitis.
[2020-06-03 01:10] VITALS: BP 162/57
[2020-06-03 02:41] LABS: ANION GAP 27 mmol/L (5-15); BLOOD UREA NITROGEN 277 mg/dL (7-18); CALCIUM 9.8 MG/DL (8.5-10.1); CHLORIDE 123 MMOL/L (98-107); CREATININE 13.2 MG/DL (0.55-1.30); SODIUM 157 MMOL/L (136-145)
[2020-06-03 02:45] VITALS: BP 172/50
--- NOTE | 2020-06-03 02:45 | NUR ---
Nurse Note: Pt more awake; open and closes eyes, tracks with eye, responds to pain. Pt non verbal. RT EJ patent and infusing fluids. Sawyer patent. Sacral wound noted. All orders completed per ERMD orders. All safety measures met; will continue to montior.
[2020-06-03 02:51] LABS: CARBON DIOXIDE 7 MMOL/L (21-32); POTASSIUM 7.3 MMOL/L (3.5-5.1)
[2020-06-03 03:41] VITALS: BP 169/54
--- NOTE | 2020-06-03 04:00 | NUR ---
Nurse Note: Report given to CYNDI Thompson for continuity of care. Q4hr NS 500ml not adminsitered d/t pt receiving .45 NS 1000ml.
--- NOTE | 2020-06-03 04:05 | NUR ---
Nurse Note: Explained to receiving nurse regarding hgb level. No orders for blood transfusion; labs currently pending. Pt arrived to floor at baseline orientation, stable for transfer, VSS, no signs of distress. Fluids infusing via RT EJ. All safety measures met; care endorsed.
--- NOTE | 2020-06-03 04:10 | NUR ---
NURSE NOTES: Patient received by radha. Patient is in stable condition. A&O x0. equip maint eng and new gown placed. Wound care photos taken and dressing placed. Bed in lowest position and locked. Bedside table and call light within reach. Initial assessment done and documented. Received report from Teri HANNA.
--- NOTE | 2020-06-03 06:34 | NUR ---
NURSE NOTES: Dr. Larson was contacted twice via text and call, No answer. Nursing fabrication and assembly supervisor was also notified twice. Still No new orders. MD in ER was contacted for bridging orders, Awaiting orders. Collected black liquidy stool from patient. Sent specimen to lab per protocol. Still awaiting orders.
--- NOTE | 2020-06-03 07:20 | NUR ---
HAND-OFF: Report given to Haim HANNA.
--- NOTE | 2020-06-03 07:44 | Consultation ---
Consult Note Consult Note I am asked to evaluate the patient at the request of Dr. Larson for renal failure. Patient seen in room 214 at 7:30 AM. Discussed with RN "Alyson. Patient is a frail elderly female. She is nonverbal. She has a Sawyer catheter with no urine output. Labs reviewed Examined Full note to follow ER note: This is an 84-year-old female from a retirement. She has a history of hypertension, diabetes, dementia. She also tested positive for COVID on May 04. She presents with chief complaint of weakness, lethargy and vomiting. Onset today. No reported fever or chills. No cough or congestion. Vomiting is bilious in nature. Decreased appetite. Decreased mentation per EMS. History is through EMS and retirement note. Patient unable to give a history because of her condition. 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 COVID-19 Screening: Positive COVID-19 COVID-19 Testing Source: 05/04/20 Patient History Past Medical History: see triage record, old chart reviewed, DM, HTN, CAD Past Surgical History: other Pertinent Family History: none Social History: Denies: smoking Last Menstrual Period: n/a Now: No Immunizations: other Reviewed Nursing Documentation: PMH: Agreed; PSxH: Agreed Nursing Documentation-PMH Past Medical History: No History, Except For Hx Cardiac Problems: Yes Hx Hypertension: Yes Hx Diabetes: Yes On examination patient friable Blood pressure 160/80, tachycardic, breathing irregular, oxygen by cannula Left facial paresis Rhonchi Irregular heart rate Distended abdomen No edema Assessment/Plan This is an 84-year-old female with a CODE STATUS of DNR who was admitted at the [facility] and has acute renal failure with hyperkalemia acidosis and minimal urine output need urgent need of dialysis. I am not familiar with the patient in the past and am not aware if the responsible parties would like to dialyze this patient or not. Nevertheless I discussed with the RN Don and will go ahead and put the needed order orders for dialysis and temporary catheter insertion and treatment of hyperkalemia and severe anemia in the chart and if the family are agreeable with will proceed. I will see the patient again in a few hours and comment on further management. Patient status is critical and prognosis is poor I spent an additional 36 minutes on review of medical records including prior hospital records,consult notes, progress notes, procedures ,imaging labs, hemodynamics, and other clinical documentation. Over 35 min Dioni Lunsford MD Jun 03, 2020 07:44
[2020-06-03] MEDS ORDERED: Sodium Polystyrene Sulfonate 15gm Powder NG SCH (07:45)
--- NOTE | 2020-06-03 07:50 | NUR ---
NURSE NOTES: Pt obtunded in bed, breathing easily on room air, responds only to physical stim by withdrawal. Vital signs stable with SR @ 76 on monitor. IV access Right EJ, with NS at TKO. Sawyer cath in place with scant mucus laden urine draining into collection bag. Attempting to contact family for consents for Dialysis, central line and blood transfusion, Message left on voice mail. Bed left in low position, side rails up x 3 and call light left near pt's hand.
--- NOTE | 2020-06-03 08:23 | NUR ---
Nurse Notes Contacted both sons regarding consents for care regarding PRBC's, central line and dialysis need for plan of care. Left voicemail for return call.
[2020-06-03 08:26] VITALS: BP 132/40
[2020-06-03 08:46] LABS: HEMATOCRIT 14.3 % (37.0-47.0); MEAN CORPUSCULAR VOLUME 98 FL (80-99); PLATELET COUNT 204 K/UL (150-450); RED BLOOD COUNT 1.46 M/UL (4.20-5.40); RED CELL DISTRIBUTION WIDTH 16.9 % (11.6-14.8); WHITE BLOOD COUNT 8.6 K/UL (4.8-10.8)
[2020-06-03 08:47] LABS: HEMOGLOBIN 4.4 G/DL (12.0-16.0)
[2020-06-03] MEDS ORDERED: Acetaminophen 650 MG SUPP RECTAL PRN (09:15)
[2020-06-03 09:59] LABS: ALANINE AMINOTRANSFERASE 9 U/L (12-78); ALBUMIN 2.4 G/DL (3.4-5.0); ALBUMIN/GLOBULIN RATIO 0.7 (1.0-2.7); ALKALINE PHOSPHATASE 43 U/L (46-116); ANION GAP 22 mmol/L (5-15); ASPARTATE AMINO TRANSFERASE 18 U/L (15-37); BILIRUBIN,TOTAL 0.3 MG/DL (0.2-1.0); CALCIUM 9.8 MG/DL (8.5-10.1); CARBON DIOXIDE 12 MMOL/L (21-32); CHLORIDE 125 MMOL/L (98-107); CHOLESTEROL 114 MG/DL (< 200); CREATININE 12.9 MG/DL (0.55-1.30); FERRITIN 851 NG/ML (8-388); GAMMA GLUTAMYL TRANSPEPTIDASE 8 U/L (5-85); HDL CHOLESTEROL 31 MG/DL (40-60); PHOSPHORUS 6.3 MG/DL (2.5-4.9); SODIUM 159 MMOL/L (136-145); TRIGLYCERIDES 93 MG/DL (30-150)
[2020-06-03 10:07] LABS: BLOOD UREA NITROGEN 289 mg/dL (7-18)
[2020-06-03 10:08] LABS: POTASSIUM 6.1 MMOL/L (3.5-5.1)
--- NOTE | 2020-06-03 10:27 | NUR ---
NURSE NOTES: industrial machine system technician requested we check patient who was showing asystole on the monitor. Pt unconscious/unresponsive to painful stimulus. Pupils fixed and dilated. No carotid pulse detected after 1 minute. Chest auscultated for 1 minute and no heartbeat detected. Lungs auscultated for 1 minute and no respirations detected. Nursing caddie supervisor notified for official pronouncement.
--- NOTE | 2020-06-03 10:35 | NUR ---
PRONOUNCEMENT: DNR/DNI. Called to pronounce patient. Absence of spontaneous respirations, no cardiac or breath sounds on auscultation. Pupils fixed and dilated. No carotid pulse or chest movement. Patient at 10:27AM. DR Larson notified at 10:30 PER David Rushing RN. Family was notified at 10:30.
[2020-06-03 10:43] LABS: % IRON SATURATION 127 % (15-50); IRON 154 ug/dL (50-175); TOTAL IRON BINDING CAPACITY 121 ug/dL (250-450)
[2020-06-03] MEDS ORDERED: 1/2 NS 1000ml IV ONE (12:57)
[2020-06-03] MEDS ORDERED: Sodium Polystyrene Sulfonate 15gm Powder ORAL SCH (15:00)
[2020-06-03] MEDS ORDERED: Heparin 5000 units/ml inj SUBQ SCH (21:00)
--- NOTE | 2020-06-05 15:23 | Discharge Summary ---
Discharge Summary Discharge Summary _ SUMMARY DATE OF ADMISSION: 06/03/2020 DATE OF EXPIRATION: 06/03/2020 REASON FOR ADMISSION: 84 years old female, resident of group home facility, DNR/DNI status, with past medical history of hypertension, diabetes mellitus, dementia, tested positive for COVID-19 on May 04, was sent from the facility for evaluation due to increased weakness, lethargy, decreased mentation and vomiting. Symptoms were present for 1 day. Vomiting reported as nonbloody and bilious. No reported fever and chills. No cough or congestion. Upon evaluation patient was afebrile, pulse oximetry was stable on room air Laboratory work-up revealed severe anemia with hemoglobin 5.1, hematocrit 16.8, no leukocytosis. Repeated hemoglobin was 4.4, hematocrit 14.3. Chemistries revealed potassium 8.6, sodium 154, carbon dioxide 8. BUN 299, creatinine 14.9. Glucose 192. Troponin negative. Albumin 2.9. Urinalysis was grossly consistent with UTI, +2 protein. Chest x-ray demonstrated mild cardiomegaly, elevation of the right hemidiaphragm and osteopenia. CT scan of the abdomen and pelvis showed distention of the rectosigmoid with stool worrisome for fecal impaction. Anasarca. Cardiomegaly. ASCVD. Gastric distention with fluid within the stomach. Clinical findings suggestive of gastritis. Probable bilateral adrenal adenoma. Rapid COVID-19 at ED was negative. In emergency department patient received IV fluids. Treatment of hyperkalemia initiated. Patient received bicarbonate. Patient received empiric antibiotic. Patient was typed and crossed for blood transfusion. Patient subsequently admitted to telemetry floor for further management. CONSULTANTS: licensing registration examiner Dr. Lunsford [facility]: Patient admitted to telemetry floor. Two units of packed red blood cells for blood transfusion was ordered. DVT prophylaxis provided. Per licensing registration examiner patient required urgent dialysis. Orders were written. Meantime patient was treated for hyperkalemia. Patient remained tachycardic, with irregular breathing breathing and rhonchi on auscultation. Unfortunately patient condition was rapidly deteriorating. Patient was pronounced at 10:27 AM 06/03. Cause of cardiopulmonary arrest likely due to acute renal failure FINAL DIAGNOSES: Acute renal failure Severe hyperkalemia Severe anemia UTI Altered mental status ( likely due to acute metabolic encephalopathy secondary to acute renal failure ) Hypertension Diabetes Recent COVID-19 infection on Dementia Possible fecal impaction DNR/DNI status I have been assigned to dictate discharge summary for this account. I was not involved in the patient's management. Julee Yee NP Jun 05, 2020 15:23
--- NOTE | 2020-06-05 15:59 | NUR ---
*-* INSURANCE *-* ALL AVAILABLE CLINICALS HAVE BEEN FAXED: [facility] # [phone] fax#[phone] Addendum: 06/06/20 at 1116 by KOSTAS BAJWA CM Ref# [id number]
--- NOTE | 2020-06-06 12:28 | NUR ---
*-* INSURANCE *-* DISCHARGE SUMMARY HAS BEEN FAXED [facility]# [phone] fax#[phone] Ref# [id number]
== END 2020-06-03 12:58 | disposition expired | DRG 682 ==
LOC: EDUNIT# 22:35 → EDBD 22:35 → EMR 22:45 → EDBEDREQSVC 06-03 01:07 → 2E 06-03 03:10 → EDBEDREQ 06-03 03:34
DX: N17.9 Acute kidney failure, unspecified (principal); G93.41 Metabolic encephalopathy; N39.0 Urinary tract infection, site not specified; I10 Essential (primary) hypertension; E87.5 Hyperkalemia; F03.90 Unspecified dementia, unspecified severity, without behavioral disturbance, psychotic disturbance, mood disturbance, and anxiety; K56.41 Fecal impaction; Z86.19 Personal history of other infectious and parasitic diseases; D64.9 Anemia, unspecified; Z66 Do not resuscitate; Z88.6 Allergy status to analgesic agent; Z88.8 Allergy status to other drugs, medicaments and biological substances; I25.10 Atherosclerotic heart disease of native coronary artery without angina pectoris
CPT/HCPCS: 36415; 71045; 74176; 80048; 80053; 80061; 81003; 82270; 82607; 82728; 82746; 82977; 83540; 83550; 83690; 83735; 83880; 84100; 84484; 84550; 85007; 85025; 86140; 86850; 86900; 86901; 86920; 87081; 87086; 87181; 93005; 93306; 96361; 96365; 96375; 99291; J2405; J7030; U0002